=== PATIENT | female | born 1980 | race Caucasian/White ===

== ENCOUNTER 2016-12-25 03:21 | Inpatient (IN) | payer OTHER ==
[~2016-12-25] VITALS: Ht 149.9 cm; Wt 79.2 kg
[~2016-12-25 03:21] MED LIST: [UNRECOGNIZED DRUG - REMARK]
[2016-12-25 04:24] VITALS: Ht 149.9 cm; Wt 79.2 kg
[2016-12-25] MEDS ORDERED: ONDANSETRON 4 MG INJ IV PRN (04:30)
[2016-12-25] MEDS ORDERED: morphine 4 MG/ML VIAL IV PRN (04:30)
[2016-12-25] MEDS: DEXTROSE 5%-0.45% NACL 1,000 ML IV SCH ×3 (04:46→20:30)
[2016-12-25 05:15] VITALS: BP 152/73; PULSE 54; RESP 18
[2016-12-25 05:35] LABS: ADD SCAN DIFF NO
[2016-12-25 05:39] LABS: BASOPHILS % 0.2 % (0.0-2.0); EOSINOPHILS # 0.1 10^3/ul (0.0-0.5); EOSINOPHILS % 0.4 % (0.0-7.0); HEMATOCRIT 36.7 % (37.0-47.0); HEMOGLOBIN 12.4 g/dl (12.0-16.0); LYMPHOCYTES # 2.2 10^3/ul (0.8-2.9); MEAN CORPUSCULAR HEMOGLOBIN 27.3 pg (29.0-33.0); MEAN CORPUSCULAR HGB CONC 33.8 g/dl (32.0-37.0); MEAN CORPUSCULAR VOLUME 80.8 fl (82.0-101.0); MONOCYTE # 0.7 10^3/ul (0.3-0.9); MONOCYTES % 5.8 % (0.0-11.0); NEUTROPHIL # 9.6 10^3/ul (1.6-7.5); PLATELET COUNT 501 10^3/UL (140-415); RED BLOOD COUNT 4.54 10^6/ul (4.20-5.40); RED CELL DISTRIBUTION WIDTH 12.9 % (11.5-14.5); WHITE BLOOD COUNT 12.7 10^3/ul (4.8-10.8)
[2016-12-25 06:18] LABS: ALBUMIN 3.7 g/dl (3.3-4.9); ALBUMIN/GLOBULIN RATIO 1.08; BILIRUBIN,INDIRECT 0.3 mg/dl (0-1.1); BILIRUBIN,TOTAL 0.3 mg/dl (0.2-1.3); CALCIUM 8.7 mg/dl (8.4-10.2); CREATININE 0.71 mg/dl (0.44-1.00); MAGNESIUM 1.9 mg/dl (1.7-2.5); POTASSIUM 4.1 mmol/L (3.5-5.1); TOTAL PROTEIN 7.1 g/dl (6.1-8.1)
[2016-12-25 07:00] VITALS: BP 129/74; RESP 20
--- NOTE | 2016-12-25 08:53 | RADRPT ---
PROCEDURE: US Abdomen (right upper quadrant). CLINICAL INDICATION: Abdominal pain. TECHNIQUE: Multiple real-time longitudinal and transverse images of the right upper quadrant of th e abdomen were acquired utilizing a curved array transducer. Images were reviewed on a high-resoluti on PACS workstation. COMPARISON: None FINDINGS: The liver is normal in size and echotexture without focal mass or intrahepatic biliary dilatation. There is normal hepatopedal flow within the main portal vein. The gallbladder is remarkable for mul tiple echogenic, shadowing calculi. There is no wall thickening. There is a small amount of perich olecystic fluid present The common bile duct measures 6.9 mm in maximal dimension. The visualized portions of the pancreas are unremarkable with obscuration of the tail of the pancreas. No free flu id is identified. The right kidney measures 11.2 cm in length. There is normal echogenicity within the right kidney. There is no perinephric fluid collection. No hydronephrosis, mass, or calculus is seen. IMPRESSION: 1. Cholelithiasis with a small amount of pericholecystic fluid with borderline dilation of the comm on bile duct. The possibility of associated acute cholecystitis should be entertained. RPTAT: AACC Physician Santiago Date Time Electronically viewed and signed by Physician Santiago on 12/25/2016 08:53 /
--- NOTE | 2016-12-25 10:11 | HP ---
DATE OF ADMISSION: 12/25/2016 CHIEF COMPLAINT: Abdominal pain. HISTORY OF PRESENT ILLNESS: The patient is a 36-year-old female with no significant past medical hi story who was transferred from another hospital for evaluation of abdominal pain and cholecystitis. She said she has been having abdominal pain for like a day or 2 and that it is almost entirely loca lized in the right upper quadrant area. She reports associate nausea but no vomiting. She denied a [place] fever, chills, chest pain, shortness of breath, or urinary symptoms. When she was at [facility], a right upper quadrant ultrasound was done which showed g allstone with gallbladder wall thickening and a positive Ahuja sign. Her white count was 17,000. Liver chemistries were within normal limits. The patient was transferred here because of insurance reason with the diagnosis of cholecystitis. REVIEW OF SYSTEMS: A 12-point review of systems is performed and negative except as mentioned in HP I. PAST MEDICAL HISTORY: As per HPI. PAST SURGICAL HISTORY: Denies. SOCIAL HISTORY: Denied a history of tobacco, alcohol, or illicit drug use. ALLERGIES: NO KNOWNDRUG ALLERGIES. MEDICATIONS: None. PHYSICAL EXAMINATION: VITAL SIGNS: Blood pressure 152/73, heart rate 54, respiratory rate 18, temperature 98.1, oxygen sa turation 99% on room air. GENERAL: The patient is lying on her side in no acute distress. She is answering questions appropr iately. HEENT: No obvious head deformity. Pupils are reactive to light. Extraocular movements intact. CARDIOVASCULAR: Bradycardic with regular rhythm. LUNGS: Clear. ABDOMEN: Soft. There is tenderness in the right upper quadrant area with very minimal guarding to deep palpation. No rigidity, no rebound tenderness. There are positive bowel sounds. EXTREMITIES: No edema. NEUROLOGIC: No focal deficits. LABORATORY: WBC 12.7. Otherwise, CBC and CMP are within acceptable range. IMPRESSION: 1. Acute cholecystitis. 2. Right upper quadrant abdominal pain secondary to above. 3. Leukocytosis, probably secondary to acute cholecystitis. PLAN: We will keep n.p.o. with IV fluids. We will provide pain medication and antiemetics as neede d. We will place a surgical consult. I will go ahead and order right upper quadrant ultrasound. A dditional imaging as needed. Further workup and management per clinical course. Dictated By: JADIEL HONG/SPENSER Conf#: [id number] [facility]#: [id number]
[2016-12-25] MEDS ORDERED: ACETAMINOPHEN 325 MG TAB PO PRN (13:00)
[2016-12-25 13:13] LABS: CHOL/HDL RATIO 4.4 RATIO
[2016-12-25] MEDS: PIPER-TAZO 3.375 GM IV (PMX) 100 ML IVPB SCH ×3 (13:15→23:13)
[2016-12-25] MEDS: PANTOPRAZOLE 40 MG INJ IV SCH (13:16)
--- NOTE | 2016-12-25 14:38 | CONS ---
DATE OF ADMISSION: 12/25/2016 DATE OF CONSULTATION: 12/25/2016 SURGICAL CONSULTATION REFERRING PHYSICIAN: Dr. Geraldo Acosta CHIEF COMPLAINT: 1. Abdominal pain. 2. Cholecystitis. 3. Leukocytosis. HISTORY OF PRESENT ILLNESS: Monica Madsen is a 36-year-old female who has had previous issues with her gallbladder in the past year, but then presented to [facility] with abdominal pa in and associated nausea, vomiting for about 3 or 4 days, but no fevers, chills, with no chest pain, no shortness of breath, no visual or neurologic changes. No dysuria or change in bowel habits. No cough. Pain does not radiate. At [facility], ultrasound shows gallbladder wall thickening with gallstones with positive Ahuja's s ign, white count of 17,000. Her current white count is 12,000. The patient was transferred here fo further care and treatment. Her pain has improved. PAST MEDICAL HISTORY: 1. Gallstones. 2. Cholecystitis. 3. BMI of 35. 4. Leukocytosis. PAST SURGICAL HISTORY: Vaginal . SOCIAL HISTORY: Denies alcohol, drugs, or tobacco. FAMILY HISTORY: Noncontributory. REVIEW OF SYSTEMS: A 12-point review of systems negative unless mentioned in history of present ill ness. PHYSICAL EXAMINATION: VITAL SIGNS: Temperature is 98.7, pulse 50s, blood pressure 129/74, saturating 97% on room air. GENERAL: No acute distress, obese. HEENT: Pupils equal, reactive. No scleral icterus. Mucous membranes are moist. NECK: Supple, no JVD. PULMONARY: Normal respiratory effort. CARDIAC: S1, S2 present. ABDOMEN: Soft, tender in the right upper quadrant with Ahuja's. No hernias. EXTREMITIES: No edema. VASCULAR: Cap refill less than 2 seconds. NEUROLOGIC: Alert, oriented, moves all 4 extremities grossly. LYMPHATICS: No inguinal, cervical lymphadenopathy. LABORATORY AND RADIOGRAPHIC: As per chart. ASSESSMENT AND PLAN: Monica Madsen is a 36-year-old female. 1. Abdominal pain with imaging indicative of acute cholecystitis. Continue antibiotics, pain contr ol, and will consider cholecystectomy. 2. Dilated common bile duct; however, normal LFTs. MRCP pending. 3. BMI of 35. The patient is encouraged to optimize her nutrition and exercise to improve her over all health status. 4. Leukocytosis secondary to #1, as above. Thank you very much for consulting me in this patient's care. Dictated By: KIM WHITE/SPENSER Conf#: [id number] DID#: [id number]
[2016-12-25 19:54] VITALS: BP 132/75; RESP 20
[2016-12-25] MEDS: HEPARIN 5,000 UNIT/0.5 ML VIAL SC SCH (20:31)
[2016-12-26] MEDS: DEXTROSE 5%-0.45% NACL 1,000 ML IV SCH ×3 (02:08→20:57)
[2016-12-26] MEDS: PANTOPRAZOLE 40 MG INJ IV SCH (05:04)
[2016-12-26] MEDS: PIPER-TAZO 3.375 GM IV (PMX) 100 ML IVPB SCH ×4 (05:04→23:16)
[2016-12-26 05:24] LABS: ADD SCAN DIFF NO
[2016-12-26 05:30] LABS: BASOPHILS % 0.4 % (0.0-2.0); EOSINOPHILS # 0.2 10^3/ul (0.0-0.5); HEMATOCRIT 37.5 % (37.0-47.0); HEMOGLOBIN 12.2 g/dl (12.0-16.0); LYMPHOCYTES # 2.1 10^3/ul (0.8-2.9); MEAN CORPUSCULAR HEMOGLOBIN 26.6 pg (29.0-33.0); MEAN CORPUSCULAR HGB CONC 32.5 g/dl (32.0-37.0); MEAN CORPUSCULAR VOLUME 81.7 fl (82.0-101.0); MEAN PLATELET VOLUME 8.8 fl (7.4-10.4); MONOCYTE # 0.6 10^3/ul (0.3-0.9); MONOCYTES % 7.1 % (0.0-11.0); NEUTROPHIL # 4.9 10^3/ul (1.6-7.5); NEUTROPHILS % 61.9 % (39.0-77.0); PLATELET COUNT 466 10^3/UL (140-415); RED BLOOD COUNT 4.59 10^6/ul (4.20-5.40); WHITE BLOOD COUNT 7.9 10^3/ul (4.8-10.8)
[2016-12-26 05:48] LABS: CREATININE 0.88 mg/dl (0.44-1.00); POTASSIUM 3.5 mmol/L (3.5-5.1)
[2016-12-26 08:01] VITALS: BP 119/61; RESP 17
[2016-12-26 08:09] VITALS: BP 98/56; RESP 17
[2016-12-26] MEDS: HEPARIN 5,000 UNIT/0.5 ML VIAL SC SCH ×2 (09:00→20:59)
--- NOTE | 2016-12-26 10:58 | RADRPT ---
PROCEDURE: MRCP of the abdomen. CLINICAL INDICATION: Cholelithiasis with pericholecystic fluid and borderline dilatation of the co mmon bile duct. Acute cholecystitis. TECHNIQUE: AP abdomen x-ray. COMPARISON: Abdominal sonogram 12/25/2016. FINDINGS: Multiplanar multi echo imaging is performed to the abdomen without contrast. The extrahepatic commo n bile duct is identified and measures about 4.3 mm in diameter. No obstructing stone is identified in the common bile duct. There are multiple gallstones in the gallbladder. Pericholecystic fluid is identified. The right kidney is unremarkable. There is a 1.7 cm benign cyst in the lower pole of the left kidne y. There is no evidence of hydronephrosis. The spleen is unremarkable. The stomach and small curtis l loops are unremarkable. The visible portions of the colon are normal. The heart and visible lung gutierrez are unremarkable. The adrenal glands and pancreas are unremarkable. IMPRESSION: 1. Cholelithiasis. 2. Pericholecystic fluid which is likely the result of acute cholecystitis. 3. Normal common bile duct. 4. 1.7 cm benign cyst lower pole left kidney. 5. Normal extrahepatic common bile duct. No evidence of a choledocholith. Physician Alexey Date Time Electronically viewed and signed by Physician Alexey on 12/26/2016 10:57 JM/
--- NOTE | 2016-12-26 12:40 | PN ---
DATE: 12/26/2016 SUBJECTIVE: The patient had MRCP, denies any abdominal pain presently. No acute events overnight. OBJECTIVE VITAL SIGNS: Stable except heart rate is in the 51 to 78 range. ____. GENERAL: The patient is lying in bed, no acute distress. HEENT: Pupils equal, round, reactive to light. Extraocular muscles intact. NECK: Supple, no thyromegaly. LUNGS: Clear to auscultation bilaterally. CARDIOVASCULAR: S1, S2 heard. No rubs or gallops. ABDOMEN: Mild tenderness to palpation in epigastric area. No rebound or guarding. Normal bowel so unds. MUSCULOSKELETAL: No lower extremity edema bilaterally. NEUROLOGIC: No focal deficits. LABORATORY DATA: Basic metabolic panel is normal. CBC is normal. MRCP showed cholelithiasis, [place] cholecystic fluid, which is likely result of acute cholecystitis, normal common bile duct and 1.7 cm benign cyst in lower pole of the left kidney, normal extrahepatic common bile duct. No evidence of any choledocholithiasis. ASSESSMENT AND PLAN: A 36-year-old female with abdominal pain secondary to acute cholecystitis. 1. Abdominal pain secondary to acute cholecystitis, Continue the patient n.p.o., IV fluids, pain c ontrol medications and antiemetics. Followup with surgery recommendations. The patient may benefit from surgical procedure. Will discuss with them. Continue antibiotics for now. 2. Leukocytosis, likely secondary to cholecystitis, resolving now. Continue to monitor for now. 3. Gastrointestinal prophylaxis, proton pump inhibitor. 4. Deep vein thrombosis prophylaxis, ____. Dictated By: LYDIA ROB Conf#: [id number] DID#: [id number]
--- NOTE | 2016-12-26 14:55 | PN ---
Date/Time of Note Date/Time of Note DATE: 12/26/16 TIME: 14:52 Assessment/Plan Lines/Catheters IV Catheter Type (from [facility]): Peripheral IV Assessment/Plan Chief Complaint/Hosp Course 1. Abdominal pain with imaging indicative of acute cholecystitis. Improving. MRCP noted. -antibiotics -liquid diet and advance to low fat/cholesterol diet -outpt cholecystectomy. 2. Dilated common bile duct; however, normal LFTs. MRCP negative. 3. BMI of 35. The patient is encouraged to optimize her nutrition and exercise to improve her overall health status. 4. Leukocytosis secondary to #1, as above. Resolved. Thank you Problems: Subjective 24 Hr Interval Summary Leukocytosis resolved. Pain improved (09/11). No f/c. No n/v. No cp/sob. No yusuf/dizzy/visual or neuro changes. No dysuria. MRCP noted. Exam/Review of Systems Vital Signs Vitals Vital Signs Date Time Temp Pulse Resp B/P Pulse Ox O2 Delivery O2 Flow Rate FiO2 12/26/16 08:09 97.7 51 17 98/56 99 12/25/16 05:15 Room Air Intake and Output 12/25/16 12/25/16 12/26/16 15:00 23:00 07:00 Intake Total 1000 ml 100 ml 2475 ml Output Total 750 ml Balance 1000 ml 100 ml 1725 ml Exam Free Text/Dictation GENERAL: No acute distress, obese. HEENT: Pupils equal, reactive. No scleral icterus. Mucous membranes are moist. NECK: Supple, no JVD. PULMONARY: Normal respiratory effort. CARDIAC: S1, S2 present. ABDOMEN: Soft, negative Ahuja's. Very minimal tenderness to deep palpation. No rebound/guarding/rigidity. No hernias. EXTREMITIES: No edema. VASCULAR: Cap refill less than 2 seconds. NEUROLOGIC: Alert, oriented, moves all 4 extremities grossly. LYMPHATICS: No inguinal, cervical lymphadenopathy. Results Free Text/Dictation MRCP: 1. Cholelithiasis. 2. Pericholecystic fluid which is likely the result of acute cholecystitis. 3. Normal common bile duct. 4. 1.7 cm benign cyst lower pole left kidney. 5. Normal extrahepatic common bile duct. No evidence of a choledocholith. Result Diagram: 12/26/16 0450 12/26/16 0450 KIM FIERRO MD December 26, 2016 14:55
[2016-12-26 19:56] VITALS: BP 108/73; RESP 19
[2016-12-27] MEDS: PANTOPRAZOLE 40 MG INJ IV SCH (05:19)
[2016-12-27] MEDS: DEXTROSE 5%-0.45% NACL 1,000 ML IV SCH (05:19)
[2016-12-27] MEDS: PIPER-TAZO 3.375 GM IV (PMX) 100 ML IVPB SCH ×2 (05:19→12:55)
[2016-12-27 05:39] LABS: ADD SCAN DIFF NO
[2016-12-27 05:53] LABS: BASOPHILS % 0.4 % (0.0-2.0); EOSINOPHILS # 0.3 10^3/ul (0.0-0.5); EOSINOPHILS % 4.7 % (0.0-7.0); HEMOGLOBIN 11.7 g/dl (12.0-16.0); LYMPHOCYTES # 2.1 10^3/ul (0.8-2.9); LYMPHOCYTES % 31.3 % (15.0-51.0); MEAN CORPUSCULAR HEMOGLOBIN 26.4 pg (29.0-33.0); MEAN CORPUSCULAR HGB CONC 32.5 g/dl (32.0-37.0); MEAN CORPUSCULAR VOLUME 81.3 fl (82.0-101.0); MEAN PLATELET VOLUME 9.4 fl (7.4-10.4); MONOCYTE # 0.4 10^3/ul (0.3-0.9); MONOCYTES % 6.5 % (0.0-11.0); NEUTROPHIL # 3.8 10^3/ul (1.6-7.5); NEUTROPHILS % 56.4 % (39.0-77.0); PLATELET COUNT 421 10^3/UL (140-415); RED BLOOD COUNT 4.43 10^6/ul (4.20-5.40); RED CELL DISTRIBUTION WIDTH 13.1 % (11.5-14.5); WHITE BLOOD COUNT 6.8 10^3/ul (4.8-10.8)
[2016-12-27 06:08] LABS: POTASSIUM 3.3 mmol/L (3.5-5.1)
[2016-12-27 06:11] LABS: CREATININE 0.84 mg/dl (0.44-1.00)
[2016-12-27 06:12] LABS: CALCIUM 8.9 mg/dl (8.4-10.2)
[2016-12-27 08:04] VITALS: BP 110/67; RESP 16
[2016-12-27] MEDS: HEPARIN 5,000 UNIT/0.5 ML VIAL SC SCH (10:34)
[2016-12-27] MEDS ORDERED: HYDR-906 PO (11:20)
--- NOTE | 2016-12-27 11:20 | PDOCDIS ---
Discharge Instructions CONDITION Patient Condition: Stable HOME CARE INSTRUCTIONS: Diet Instructions: Regular ACTIVITY: Activity Restrictions: Slowly Increase Activity FOLLOW UP/APPOINTMENTS Appointments Please take your medications as prescribed. See your doctor in the clinic in 1 week. LYDIA CASTRO December 27, 2016 11:20
[2016-12-27] MEDS ORDERED: POTASSIUM CHLORIDE (SR) 20 MEQ TAB PO SCH (11:30)
--- NOTE | 2016-12-27 11:42 | DS ---
DATE OF ADMISSION: 12/25/2016 DATE OF DISCHARGE: 12/27/2016 A 36-year-old female originally admitted on 12/25/2016 and being discharged home on 12/27/2016 if sh e is able to tolerate soft diet. HOSPITAL COURSE: This is a 36-year-old female who came in, she had abdominal pain. She had imaging studies performed that showed signs of cholelithiasis with small amount of pericholecystic fluid wi th borderline dilation of common bile duct. There was a possibility of acute cholecystitis. The silver waller was admitted to med/surg floor, seen by general surgery team. She underwent MRCP that did con firm cholelithiasis and some pericholecystic fluid, which is likely the result of acute cholecystiti s, but there was a normal common bile duct, 1.7 cm benign cyst in the lower pole of left kidney, nor mal extrahepatic common bile duct. No evidence of any choledocholithiasis. The patient was admitte d. She was made n.p.o. and then started on IV fluids, given pain control medications. After seen b y general surgery team, it was recommended for medical treatment of the patient, she was placed on c lear liquid diet, which she tolerated, and if she tolerates a soft diet today, she will be discharge d home today in improved condition. If she tolerates that, she will follow up with the surgeon in t clinic in the next 1 week, and she will go home with [place] 5/325 one tab p.o. q.6 hours p.r.n. FINAL DIAGNOSIS: Abdominal pain secondary to cholelithiasis and mild acute cholecystitis with evelyn l lab count, negative magnetic resonance cholangiopancreatography. Time spent discharging patient, 35 minutes. Dictated By: LYDIA ROB Conf#: [id number] DID#: [id number]
--- NOTE | 2016-12-27 21:01 | PN ---
Date/Time of Note Date/Time of Note DATE: 12/27/16 TIME: 21:00 Assessment/Plan Lines/Catheters IV C[facility]ter Type (from [facility]): [place] Assessment/Plan Chief Complaint/Hosp Course 1. Abdominal pain with imaging indicative of acute cholecystitis. Improving. MRCP noted. -antibiotics -advance to low fat/cholesterol diet -outpt cholecystectomy. 2. Dilated common bile duct; however, normal LFTs. MRCP negative. 3. BMI of 35. The patient is encouraged to optimize her nutrition and exercise to improve her overall health status. 4. Leukocytosis secondary to #1, as above. Resolved. Thank you Late entry Problems: Subjective 24 Hr Interval Summary Leukocytosis resolved. Pain improved. Tolerating diet. No f/c. No n/v. No cp/sob. No yusuf/dizzy/visual or neuro changes. No dysuria. MRCP noted. Exam/Review of Systems Vital Signs Vitals Vital Signs Date Time Temp Pulse Resp B/P Pulse Ox O2 Delivery O2 Flow Rate FiO2 12/27/16 08:04 98.0 50 16 110/67 100 12/25/16 05:15 Room Air Intake and Output 12/26/16 12/26/16 12/27/16 15:00 23:00 07:00 Intake Total 1100 ml 2300 ml 2575 ml Output Total 1050 ml Balance 1100 ml 2300 ml 1525 ml Exam Free Text/Dictation GENERAL: No acute distress, obese. HEENT: Pupils equal, reactive. No scleral icterus. Mucous membranes are moist. NECK: Supple, no JVD. PULMONARY: Normal respiratory effort. CARDIAC: S1, S2 present. ABDOMEN: Soft, negative Ahuja's. NT. No rebound/guarding/rigidity. No hernias. EXTREMITIES: No edema. VASCULAR: Cap refill less than 2 seconds. NEUROLOGIC: Alert, oriented, moves all 4 extremities grossly. LYMPHATICS: No inguinal, cervical lymphadenopathy. Results Result Diagram: 12/27/16 0425 12/27/16 0425 KIM FIERRO MD December 27, 2016 21:01
[2016-12-28] MEDS ORDERED: PANTOPRAZOLE (EC) 40 MG TAB PO SCH (06:00)
== END 2016-12-27 15:54 | disposition home or self-care (01) | DRG 446 ==
LOC: MS1 03:47
PROVIDERS: ADMIT Internal Medicine; ATTEND Internal Medicine
DX: K81.0 Acute cholecystitis (principal); N28.1 Cyst of kidney, acquired; K83.8 Other specified diseases of biliary tract; K82.8 Other specified diseases of gallbladder
CPT/HCPCS: 74181; 76705; 80048; 80053; 80061; 83735; 84100; 85025; C9113; J1644; J2543; J7042

== ENCOUNTER 2017-07-23 01:13 | Emergency (ER) | payer OTHER ==
[~2017-07-23] VITALS: Ht 162.6 cm; Wt 73.0 kg
[~2017-07-23 01:13] MED LIST changes: +HYDR-906 PO; -[UNRECOGNIZED DRUG - REMARK]
[2017-07-23 01:14] VITALS: Ht 162.6 cm; Wt 73.0 kg
[2017-07-23 05:40] LABS: BASOPHILS % 0.4 % (0.0-2.0); EOSINOPHILS % 0.3 % (0.0-7.0); HEMATOCRIT 38.6 % (37.0-47.0); HEMOGLOBIN 13.2 g/dl (12.0-16.0); LYMPHOCYTES # 1.3 10^3/ul (0.8-2.9); LYMPHOCYTES % 14.1 % (15.0-51.0); MEAN CORPUSCULAR HEMOGLOBIN 27.2 pg (29.0-33.0); MEAN CORPUSCULAR HGB CONC 34.2 g/dl (32.0-37.0); MEAN CORPUSCULAR VOLUME 79.4 fl (82.0-101.0); MEAN PLATELET VOLUME 9.2 fl (7.4-10.4); MONOCYTE # 0.5 10^3/ul (0.3-0.9); NEUTROPHIL # 7.2 10^3/ul (1.6-7.5); PLATELET COUNT 344 10^3/UL (140-415); RED BLOOD COUNT 4.86 10^6/ul (4.20-5.40)
[2017-07-23 05:49] LABS: URINE BLOOD (Dip) POC 2+ (NEGATIVE)
[2017-07-23] MEDS ORDERED: ACET-141 PO (05:59)
[2017-07-23 06:24] LABS: ALBUMIN 4.4 g/dl (3.3-4.9); ALBUMIN/GLOBULIN RATIO 1.18; BILIRUBIN,INDIRECT 0.5 mg/dl (0-1.1); BILIRUBIN,TOTAL 0.5 mg/dl (0.2-1.3); CALCIUM 9.4 mg/dl (8.4-10.2); CREATININE 0.79 mg/dl (0.44-1.00); POTASSIUM 4.2 mmol/L (3.5-5.1); TOTAL PROTEIN 8.1 g/dl (6.1-8.1)
[2017-07-23] MEDS ORDERED: ONDANSETRON 4 MG INJ IV STA (06:29)
[2017-07-23] MEDS ORDERED: morphine 4 MG/ML VIAL IV STA (06:29)
[2017-07-23] MEDS ORDERED: SOD CHLORIDE 0.9% 1,000 ML IV STA (06:29)
--- NOTE | 2017-07-23 07:12 | RADRPT ---
PROCEDURE: Abdominal ultrasound, limited. CLINICAL INDICATION: Abdominal pain. TECHNIQUE: Multiple real-time images were acquired of the patient's right upper abdomen utilizing a high resolution transducer. COMPARISON: 12/25/2016. FINDINGS: The liver demonstrates normal echogenicity and size measuring 14.3 cm. There is no focal mass or in trahepatic biliary ductal dilatation. The portal vein is patent. The gallbladder is not distended. Multiple echogenic gallstones are identified. There is no pericholecystic fluid or gallbladder wa ll thickening. The common bile duct measures 5.0 mm in maximal dimension. The visualized portions of the pancreas are unremarkable. No free fluid is identified. The right kidney is normal size and echogenicity measuring 9.8 x 3.8 cm. There is no focal renal ma ss or echogenic calculus identified. There is no obstructive uropathy. IMPRESSION: Cholelithiasis without ultrasound evidence of cholecystitis. .Cecil Parker MD, MD Date Time Electronically viewed and signed by .Cecil Parker MD, MD on 07/23/2017 07:12 .T/
[2017-07-23] MEDS ORDERED: HYDR-902 PO (07:26)
[2017-07-23] MEDS ORDERED: ONDA4TAB14 PO (07:26)
--- NOTE | 2017-07-23 07:49 | ERD ---
ER Documentation Chief Complaint Chief Complaint RUQ abf pain x 2 days HPI Patient is a 37-year-old female who presents with abdominal pain. She has right upper quadrant abdominal pain which started yesterday at 6 PM. The pain is been constant and sharp in nature. She has no fevers. She did have vomiting. She tried Tylenol for pain. She was admitted in November for cholecystitis but did not have her gallbladder removed on that visit. She does not currently have a primary doctor. ROS All systems reviewed and are negative except as per history of present illness. Medications Home Meds Active Scripts Ondansetron (Ondansetron Odt) 4 Mg Tab.rapdis, 4 MG PO Q6H Y for NAUSEA AND/OR VOMITING, #10 TAB Prov:AMEYA BAI MD 07/23/17 Hydrocodone/Acetaminophen ([place] 10-325 Tablet) 1 Each Tablet, 1 TAB PO Q6H Y for PAIN, #7 TAB Prov:AMEYA BAI MD 07/23/17 Reported Medications Acetaminophen* (Acetaminophen*) 500 MG Extra Strength Tablet, 500 MG PO Q4H Y for PAIN AND OR ELEVATED TEMP, TAB 07/23/17 Discontinued Scripts Hydrocodone/Acetaminophen ([place] 5-325 Tablet) 1 Each Tablet, 1 EACH PO Q6, #10 TAB Prov:LYDIA CASTRO 12/27/16 Allergies Allergies: Uncoded Allergies: UNKNOWN ANTIBIOTICS (Allergy, Unknown, 03/23/14) PMhx/Soc Medical and Surgical Hx: pt denies Medical Hx, pt denies Surgical Hx History of Surgery: No Anesthesia Reaction: No Hx Neurological Disorder: No Hx Respiratory Disorders: No Hx Cardiac Disorders: No Hx Psychiatric Problems: No Hx Miscellaneous Medical Probl: No Hx Alcohol Use: No Hx Substance Use: No Hx Tobacco Use: No Smoking Status: Never smoker FmHx Family History: diabetes Physical Exam Vitals Vital Signs Date Time Temp Pulse Resp B/P Pulse Ox O2 Delivery O2 Flow Rate FiO2 07/23/17 05:55 97.6 56 17 133/79 98 Room Air 07/23/17 01:14 98.3 67 20 131/82 100 Physical Exam Const: Moderate distress secondary to pain Head: Atraumatic Eyes: Normal Conjunctiva ENT: Normal External Ears, Nose and Mouth. Neck: Full range of motion..~ No meningismus. Resp: Clear to auscultation bilaterally Cardio: Regular rate and rhythm, no murmurs Abd: Soft, right upper quadrant tenderness to palpation without rebound or guarding Skin: No petechiae or rashes Back: No midline or flank tenderness Ext: No cyanosis, or edema Neur: Awake and alert Psych: Normal Mood and Affect Result Diagram: 07/23/17 0532 07/23/17 0532 Results 24 hrs Laboratory Tests Test 07/23/17 05:32 07/23/17 05:50 White Blood Count 9.010^3/ul Red Blood Count 4.8610^6/ul Hemoglobin 13.2g/dl Hematocrit 38.6% Mean Corpuscular Volume 79.4fl Mean Corpuscular Hemoglobin 27.2pg Mean Corpuscular Hemoglobin Concent 34.2g/dl Red Cell Distribution Width 13.0% Platelet Count 79118^3/UL Mean Platelet Volume 9.2fl Neutrophils % 80.0% Lymphocytes % 14.1% Monocytes % 5.0% Eosinophils % 0.3% Basophils % 0.4% Nucleated Red Blood Cells % 0.0/100WBC Neutrophils # 7.210^3/ul Lymphocytes # 1.310^3/ul Monocytes # 0.510^3/ul Eosinophils # 0.010^3/ul Basophils # 0.010^3/ul Nucleated Red Blood Cells # 0.010^3/ul Sodium Level 138mmol/L Potassium Level 4.2mmol/L Chloride Level 102mmol/L Carbon Dioxide Level 24mmol/L Anion Gap 16 Blood Urea Nitrogen 16mg/dl Creatinine 0.79mg/dl Glucose Level 137mg/dl Calcium Level 9.4mg/dl Total Bilirubin 0.5mg/dl Direct Bilirubin 0.00mg/dl Indirect Bilirubin 0.5mg/dl Aspartate Amino Transf (AST/SGOT) 24IU/L Alanine Aminotransferase (ALT/SGPT) 34IU/L Alkaline Phosphatase 63IU/L Total Protein 8.1g/dl Albumin 4.4g/dl Globulin 3.70g/dl Albumin/Globulin Ratio 1.18 Lipase 74U/L Bedside Urine pH (LAB) 5.5 Bedside Urine Protein (LAB) Negative Bedside Urine Glucose (UA) Negative Bedside Urine Ketones (LAB) Negative Bedside Urine Blood 2+ Bedside Urine Nitrite (LAB) Negative Bedside Urine Leukocyte Esterase (L Negative Current Medications Medications (Trade) Dose Ordered Sig/Beth Route PRN Reason Start Time Stop Time Status Last Admin Dose Admin Sodium Chloride (NS) 1,000 ml @ 1,000 mls/hr Q1H STAT IV 07/23/17 06:29 07/23/17 07:28 DC Morphine Sulfate (morphine) 4 mg ONCE STAT IV 07/23/17 06:29 07/23/17 06:30 DC Ondansetron HCl (Zofran Inj) 4 mg ONCE STAT IV 07/23/17 06:29 07/23/17 06:30 DC Procedures/MDM Ultrasound shows gallstones without cholecystitis per radiology. Patient is a 37-year-old female who presents with right upper quadrant abdominal pain. I believe she has acute biliary colic. Her white blood cell count and liver tests as well as lipase are normal. Ultrasound shows gallstones but no signs of cholecystitis at this time. I believe outpatient management is appropriate but the patient would likely benefit from elective cholecystectomy. She saw Dr. Christian back in November so I will give her referral to Dr. Christian from surgery. She can return for any worsening symptoms. The patient understands the plan and is okay for discharge at this time. A [place]ian video rounding machine tender was used. The patient was given a copy of her laboratory studies and ultrasound report prior to discharge. Departure Diagnosis: Primary Impression: Biliary colic Additional Impression: Abdominal pain Abdominal location: right upper quadrant Qualified Code: R10.11 - Right upper quadrant abdominal pain Condition: Fair Patient Instructions: Biliary Colic With Gallstone (Presumed) Referrals: KIM CHRISTIAN MD Additional Instructions: Specialist:Usted tiene rj condicin mdica que requiere que mark a un especialista dentro de los prximos 1-2 [place].POR FAVOR,CON MONTIEL SEGUIMIENTO DE PRIMARIA PHSICIAN refferal. SI USTED NO TIENE UN MDICO GENERAL Y / O USTED NO PUEDE PAGAR saritha a un mdico,los siguientes espinosa RECURSOS sido suministrado a usted. ES MONTIEL RESPONSABILIDAD PARA SER VISTOS POR EL ESPECIALISTA: AMEYA BAI MD Jul 23, 2017 07:49
[2017-07-23 08:54] VITALS: BP 121/76; PULSE 52; RESP 26; TEMP 98.1
== END 2017-07-23 08:40 | disposition home or self-care (01) ==
LOC: E/R 01:13
DX: K80.50 Calculus of bile duct without cholangitis or cholecystitis without obstruction (principal); R40.2142 Coma scale, eyes open, spontaneous, at arrival to emergency department; R40.2252 Coma scale, best verbal response, oriented, at arrival to emergency department; R40.2362 Coma scale, best motor response, obeys commands, at arrival to emergency department
CPT/HCPCS: 36415; 76705; 80053; 81003; 83690; 85025; 96361; 96374; 96375; J2270; J2405; J7030; Z7502

== ENCOUNTER 2017-07-25 13:18 | Inpatient (IN) | payer OTHER ==
[~2017-07-25] VITALS: Ht 149.9 cm; Wt 72.4 kg
[~2017-07-25 13:18] MED LIST changes: +ACET-141 PO; +HYDR-902 PO; -HYDR-906 PO; +ONDA4TAB14 PO
[2017-07-25] MEDS ORDERED: SOD CHLORIDE 0.9% 1,000 ML IV STA (13:47)
[2017-07-25] MEDS ORDERED: ONDANSETRON 4 MG INJ IV STA (13:47)
[2017-07-25] MEDS ORDERED: morphine 4 MG/ML VIAL IV STA (13:47)
--- NOTE | 2017-07-25 14:49 | RADRPT ---
PROCEDURE: US Abdomen (right upper quadrant). CLINICAL INDICATION: Right upper quadrant abdomen pain. TECHNIQUE: Multiple real-time longitudinal and transverse images of the right upper quadrant of th e abdomen were acquired utilizing a curved array transducer. Images were reviewed on a high-resoluti on PACS workstation. COMPARISON: Right upper quadrant abdomen ultrasound dated July 23, 2017 which demonstrated gal lstones in the gallbladder and no evidence of cholecystitis. FINDINGS: The liver is normal in size and normal in echogenicity. There is no focal hepatic lesion. Color Doppler and pulsed Doppler sonography demonstrate normal a ntegrade flow in the portal vein. As seen previously, there are gallstones in the gallbladder. There is a small amount of fluid adjace nt to the gallbladder. There is mild gallbladder wall thickening in measuring 4 mm. The bile ducts are normal with the common bile duct measuring 4.7 mm in diameter. The visualized portions of the pancreas are unremarkable with obscuration of the tail of the pancrea s. No free fluid is present. The right kidney measures 9.7 cm. There is normal echogenicity of the right kidney. There is no p erinephric fluid collection. No hydronephrosis, mass, or calculus is seen. IMPRESSION: 1. Gallstones in the gallbladder, mild gallbladder wall thickening and adjacent fluid. Findings are suspicious for cholecystitis. Clinical correlation advised. 2. Otherwise normal right upper quadrant abdomen ultrasound. RPTAT: QQ .Korey Luna MD, Date Time Electronically viewed and signed by .Korey Luna MD, on 07/25/2017 14:49 .R/
[2017-07-25 15:25] LABS: BASOPHILS % 0.4 % (0.0-2.0); EOSINOPHILS % 0.2 % (0.0-7.0); HEMATOCRIT 41.2 % (37.0-47.0); LYMPHOCYTES # 1.4 10^3/ul (0.8-2.9); LYMPHOCYTES % 11.9 % (15.0-51.0); MEAN CORPUSCULAR HEMOGLOBIN 26.8 pg (29.0-33.0); MEAN CORPUSCULAR VOLUME 78.9 fl (82.0-101.0); MEAN PLATELET VOLUME 9.6 fl (7.4-10.4); MONOCYTE # 0.6 10^3/ul (0.3-0.9); MONOCYTES % 4.9 % (0.0-11.0); NEUTROPHIL # 9.3 10^3/ul (1.6-7.5); NEUTROPHILS % 82.2 % (39.0-77.0); PLATELET COUNT 394 10^3/UL (140-415); RED BLOOD COUNT 5.22 10^6/ul (4.20-5.40); RED CELL DISTRIBUTION WIDTH 13.1 % (11.5-14.5); WHITE BLOOD COUNT 11.3 10^3/ul (4.8-10.8)
[2017-07-25 15:35] LABS: ADD UMIC YES; UR ASCORBIC ACID 20 mg/dL (NEGATIVE); UR BILIRUBIN (Dip) NEGATIVE (NEGATIVE); UR BLOOD (Dip) 3+ mg/dL (NEGATIVE); UR CLARITY SLIGHTLY CLOUDY (CLEAR); UR COLOR YELLOW (YELLOW); UR GLUCOSE (Dip) NEGATIVE (NEGATIVE); UR KETONES (Dip) 2+ mg/dL (NEGATIVE); UR LEUKOCYTE ESTERASE (Dip) NEGATIVE Leu/ul (NEGATIVE); UR MUCUS FEW /HPF (NONE SEEN); UR NITRITE (Dip) NEGATIVE (NEGATIVE); UR RBC 7 /HPF (0-5); UR SPECIFIC GRAVITY (Dip) 1.021 (1.003-1.030); UR SQUAMOUS EPITHELIAL CELL FEW /HPF (FEW); UR TOTAL PROTEIN (Dip) NEGATIVE (NEGATIVE); UR UROBILINOGEN (Dip) NEGATIVE (NEGATIVE)
[2017-07-25 15:44] LABS: ALBUMIN 4.5 g/dl (3.3-4.9); ALBUMIN/GLOBULIN RATIO 1.25; BILIRUBIN,INDIRECT 0.6 mg/dl (0-1.1); BILIRUBIN,TOTAL 0.6 mg/dl (0.2-1.3); CALCIUM 9.8 mg/dl (8.4-10.2); CREATININE 0.75 mg/dl (0.44-1.00); POTASSIUM 4.2 mmol/L (3.5-5.1); TOTAL PROTEIN 8.1 g/dl (6.1-8.1)
[2017-07-25] MEDS ORDERED: KETOROLAC 30 MG INJ IV STA (15:58)
--- NOTE | 2017-07-25 16:24 | ERD ---
ER Documentation Chief Complaint Chief Complaint RUQ PAIN HAS HX OF CHOLELITHIASIS BILE COLORED EMESIS (DOMINGO PRIDE PA-C) HPI Patient is a 29-year-old female with a history of cholelithiasis who presents ED for concerns of persistent right upper quadrant pain and vomiting. Patient was seen here 2 days ago and at that time diagnosed with biliary colic. Patient states she has been taking [place] as well as Zofran with no alleviation of symptoms. Patient continues to have vomiting. Patient states this morning she vomited approximately 3 times, nonbloody, bilious vomiting noted. Patient denies any fevers or chills. Patient denies any chest pain, shortness of breath or cough. Denies any dysuria, frequency, urgency or hematuria. Patient denies any diarrhea. Of note, patient was hospitalized in November of this year for cholecystitis however she did not have her gallbladder removed at that time. (DOMINGO PRIDE PA-C) ROS All systems reviewed and are negative except as per history of present illness. (DOMINGO PRIDE PA-C) Medications Home Meds Active Scripts Ondansetron (Ondansetron Odt) 4 Mg Tab.rapdis, 4 MG PO Q6H Y for NAUSEA AND/OR VOMITING, #10 TAB Prov:AMEYA BAI MD 07/23/17 Hydrocodone/Acetaminophen ([place] 10-325 Tablet) 1 Each Tablet, 1 TAB PO Q6H Y for PAIN, #7 TAB Prov:AMEYA BAI MD 07/23/17 Reported Medications Acetaminophen* (Acetaminophen*) 500 MG Extra Strength Tablet, 500 MG PO Q4H Y for PAIN AND OR ELEVATED TEMP, TAB 07/23/17 Discontinued Scripts Hydrocodone/Acetaminophen ([place] 5-325 Tablet) 1 Each Tablet, 1 EACH PO Q6, #10 TAB Prov:LYDIA CASTRO. 12/27/16 Allergies Allergies: Coded Allergies: No Known Allergies (Unverified Allergy, Unknown, 07/26/17) PMhx/Soc Medical and Surgical Hx: pt denies Medical Hx, pt denies Surgical Hx History of Surgery: No Anesthesia Reaction: No Hx Neurological Disorder: No Hx Respiratory Disorders: No Hx Cardiac Disorders: No Hx Psychiatric Problems: No Hx Miscellaneous Medical Probl: No Hx Alcohol Use: No Hx Substance Use: No Hx Tobacco Use: No Smoking Status: Never smoker (DOMINGO PRIDE PA-C) Physical Exam Vitals Vital Signs Date Time Temp Pulse Resp B/P Pulse Ox O2 Delivery O2 Flow Rate FiO2 07/25/17 16:01 98.2 89 18 132/78 99 Room Air 07/25/17 13:35 99.0 64 18 152/79 99 (BEVERLY NAQVI DO) Physical Exam GENERAL: Well-developed, well-nourished female. Appears in pain. HEAD: Normocephalic, atraumatic. EYES: Pupils are equally reactive bilaterally. EOMs grossly intact. No conjunctival erythema. ENT: Moist mucous membranes. No uvula deviation. No kissing tonsils. NECK: Supple. No meningismus. Normal range of motion of the neck. LUNG: Clear to auscultation bilaterally. No rhonchi, wheezing, rales or coarse breath sounds. HEART: Regular rate and rhythm. No murmurs, rubs or gallops. ABDOMEN: Soft, and nondistended. Tender to palpation in the right upper quadrant. No rebound tenderness, no guarding. (-) McBurney's point tenderness. No CVA tenderness. EXTREMITIES: Equal pulses bilaterally. No peripheral clubbing, cyanosis or edema. No unilateral leg swelling. NEUROLOGIC: Alert and oriented. Moving all four extremities without any difficulty. Normal speech. Steady gait. SKIN: Normal color. Warm and dry. No rashes or lesions. (DOMINGO PRIDE PA-C) Result Diagram: 07/26/1762707/26/17 0628 Results 24 hrs Laboratory Tests Test 07/25/17 14:24 07/25/17 14:36 Urine Color YELLOW Urine Clarity SLIGHTLY CLOUDY Urine pH 6.0 Urine Specific [place] 1.021 Urine Ketones 2+mg/dL Urine Nitrite NEGATIVEmg/dL Urine Bilirubin NEGATIVEmg/dL Urine Urobilinogen NEGATIVEmg/dL Urine Leukocyte Esterase NEGATIVELeu/ul Urine Microscopic RBC 7/HPF Urine Microscopic WBC 7/HPF Urine Squamous Epithelial Cells FEW/HPF Urine Mucus FEW/HPF Urine Hemoglobin 3+mg/dL Urine Glucose NEGATIVEmg/dL Urine Total Protein NEGATIVEmg/dl White Blood Count 11.310^3/ul Red Blood Count 5.2210^6/ul Hemoglobin 14.0g/dl Hematocrit 41.2% Mean Corpuscular Volume 78.9fl Mean Corpuscular Hemoglobin 26.8pg Mean Corpuscular Hemoglobin Concent 34.0g/dl Red Cell Distribution Width 13.1% Platelet Count 34060^3/UL Mean Platelet Volume 9.6fl Neutrophils % 82.2% Lymphocytes % 11.9% Monocytes % 4.9% Eosinophils % 0.2% Basophils % 0.4% Nucleated Red Blood Cells % 0.0/100WBC Neutrophils # 9.310^3/ul Lymphocytes # 1.410^3/ul Monocytes # 0.610^3/ul Eosinophils # 0.010^3/ul Basophils # 0.010^3/ul Nucleated Red Blood Cells # 0.010^3/ul Sodium Level 139mmol/L Potassium Level 4.2mmol/L Chloride Level 100mmol/L Carbon Dioxide Level 26mmol/L Anion Gap 17 Blood Urea Nitrogen 9mg/dl Creatinine 0.75mg/dl Glucose Level 98mg/dl Calcium Level 9.8mg/dl Total Bilirubin 0.6mg/dl Direct Bilirubin 0.00mg/dl Indirect Bilirubin 0.6mg/dl Aspartate Amino Transf (AST/SGOT) 26IU/L Alanine Aminotransferase (ALT/SGPT) 33IU/L Alkaline Phosphatase 61IU/L Total Protein 8.1g/dl Albumin 4.5g/dl Globulin 3.60g/dl Albumin/Globulin Ratio 1.25 Lipase 74U/L Current Medications Medications (Trade) Dose Ordered Sig/Beth Route PRN Reason Start Time Stop Time Status Last Admin Dose Admin Sodium Chloride (NS) 1,000 ml @ 1,000 mls/hr Q1H STAT IV 07/25/17 13:47 07/25/17 14:46 DC 07/25/17 14:36 Morphine Sulfate (morphine) 4 mg ONCE STAT IV 07/25/17 13:47 07/25/17 13:49 DC 07/25/17 14:36 Ondansetron HCl (Zofran Inj) 4 mg ONCE STAT IV 07/25/17 13:47 07/25/17 13:49 DC 07/25/17 14:36 Ketorolac Tromethamine 30 mg 30 mg ONCE STAT IV 07/25/17 15:58 07/25/17 15:59 DC 07/25/17 16:02 Sodium Chloride 1,000 ml @ 1,000 mls/hr Q1H ONCE IV 07/25/17 16:30 07/25/17 17:29 DC 07/25/17 16:18 Ceftriaxone Sodium (Rocephin) 50 ml @ 100 mls/hr ONCE ONCE IVPB 07/25/17 16:30 07/25/17 16:59 DC 07/25/17 16:23 Metronidazole (Flagyl) 500 mg ONCE ONCE PO 07/25/17 16:30 07/25/17 16:31 DC 07/25/17 17:41 Ondansetron HCl (Zofran Inj) 4 mg BRIDGE ORDER PRN IV NAUSEA AND/OR VOMITING 07/25/17 17:30 07/26/17 17:29 DC 07/26/17 14:22 Acetaminophen (Tylenol Tab) 650 mg ER BRIDGE PRN PO MILD PAIN/FEVER 07/25/17 17:30 07/26/17 17:29 DC Fentanyl (Sublimaze) 100 mcg ONCE ONCE IV 07/25/17 17:30 07/25/17 17:31 DC 07/25/17 18:50 (BEVERLY NAQVI DO) Procedures/MDM ED COURSE: The patient was stable throughout ED course. I kept the patient and/or family informed of laboratory and diagnostic imaging results throughout the ED course. DIAGNOSTIC IMAGING: Read by radiologist. Patient: NURY OBREGON : 1980 Age: 37 Sex: F MR #: [id number] DOS: 07/25/17 1347 Ordering MD: DOMINGO PRIDE PA-C Location: [facility] Room/Bed: PROCEDURE: US Abdomen (right upper quadrant). CLINICAL INDICATION: Right upper quadrant abdomen pain. TECHNIQUE: Multiple real-time longitudinal and transverse images of the right upper quadrant of the abdomen were acquired utilizing a curved array transducer. Images were reviewed on a high-resolution PACS workstation. COMPARISON: Right upper quadrant abdomen ultrasound dated July 23, 2017 which demonstrated gallstones in the gallbladder and no evidence of cholecystitis. FINDINGS: The liver is normal in size and normal in echogenicity. There is no focal hepatic lesion. Color Doppler and pulsed Doppler sonography demonstrate normal antegrade flow in the portal vein. As seen previously, there are gallstones in the gallbladder. There is a small amount of fluid adjacent to the gallbladder. There is mild gallbladder wall thickening in measuring 4 mm. The bile ducts are normal with the common bile duct measuring 4.7 mm in diameter. The visualized portions of the pancreas are unremarkable with obscuration of the tail of the pancreas. No free fluid is present. The right kidney measures 9.7 cm. There is normal echogenicity of the right kidney. There is no perinephric fluid collection. No hydronephrosis, mass, or calculus is seen. IMPRESSION: 1. Gallstones in the gallbladder, mild gallbladder wall thickening and adjacent fluid. Findings are suspicious for cholecystitis. Clinical correlation advised. 2. Otherwise normal right upper quadrant abdomen ultrasound. RPTAT: QQ .Korey Luna MD, MD Date Time Electronically viewed and signed by .Korey Luna MD, MD on 07/25/2017 14:49 .R/ CC: DOMINGO PRIDE PA-C MEDICATIONS GIVEN: IV fluids, Zofran, Morphine, Toradol Patient tolerated medication well with no adverse reactions. Patient reported improvement in pain. MEDICAL DECISION MAKING: This is a 37-year-old female presents ED for concerns of right upper quadrant pain and vomiting. Patient was seen here 2 days ago and diagnosed with biliary colic. Patient returns today for ongoing pain and vomiting. Vital signs were reviewed. Patient is afebrile. CBC showed no signs of severe anemia. Patient' s WBC count was noted to be 11.3. CMP showed no evidence of electrolyte abnormalities, severe acidosis, alkalosis, renal failure, or liver disease. Lipase showed no evidence of acute pancreatitis. UA showed no evidence of acute infection. Blood was noted in the patient's urine however she states that she is ending her menstrual period.. test was negative. Gallbladder ultrasound today showed gallstones in the gallbladder, mild gallbladder wall thickening and adjacent fluid. Findings are suspicious for cholecystitis. Clinical correlation advised. Patient required numerous doses of pain medication and continues to have pain. At this time, patient presentation is most consistent with cholecystitis and intractable pain. I spoke to Dr. Naqvi, ED attending, who will assist with admitting the patient. Admitting MD= Dr. Jenkins. Patient was stable throughout the ED course. Low suspicion for pancreatitis, choledocholithiasis, ascending cholangitis, UTI or pyelonephritis. Disclaimer: Inadvertent spelling and grammatical errors are likely due to EHR/ dictation software use and do not reflect on the overall quality of patient care. Also, please note that the electronic time recorded on this note does not necessarily reflect the actual time of the patient encounter. (DOMINGO PRIDE PA-C) This patient with evidence of acute cholecystitis and difficult to control pain presented to me and I believe that the patient should be admitted for pain control and evaluation. I spoke with Dr. Keyes, surgeon on-call after was unable to reach Dr. Christian. Then spoke with Dr. Papi Jenkins who agreed to admit the patient. I ordered Rocephin and Flagyl for an additional IV fluid. Additional pain medicine was given. (BEVERLY NAQVI DO) Departure Diagnosis: Primary Impression: Cholecystitis Additional Impression: Intractable pain DOMINGO PRIDE PA-C Jul 25, 2017 16:24 BEVERLY NAQVI DO Jul 26, 2017 18:37 FINDINGS: The liver is normal in size and normal in echogenicity. There is no focal hepatic lesion. Color Doppler and pulsed Doppler sonography demonstrate normal antegrade flow in the portal vein. As seen previously, there are gallstones in the gallbladder. There is a small amount of fluid adjacent to the gallbladder. There is mild gallbladder wall thickening in measuring 4 mm. The bile ducts are normal with the common bile duct measuring 4.7 mm in diameter. The visualized portions of the pancreas are unremarkable with obscuration of the tail of the pancreas. No free fluid is present. The right kidney measures 9.7 cm. There is normal echogenicity of the right kidney. There is no perinephric fluid collection. No hydronephrosis, mass, or calculus is seen. IMPRESSION: 1. Gallstones in the gallbladder, mild gallbladder wall thickening and adjacent fluid. Findings are suspicious for cholecystitis. Clinical correlation advised. 2. Otherwise normal right upper quadrant abdomen ultrasound. RPTAT: QQ .Korey Luna MD, MD Date Time Electronically viewed and signed by .Korey Luna MD, MD on 07/25/2017 14:49 .R/ CC: DOMINGO PRIDE PA-C MEDICATIONS GIVEN: IV fluids, Zofran, Morphine, Toradol Patient tolerated medication well with no adverse reactions. Patient reported improvement in pain. MEDICAL DECISION MAKING: This is a 37-year-old female presents ED for concerns of right upper quadrant pain and vomiting. Patient was seen here 2 days ago and diagnosed with biliary colic. Patient returns today for ongoing pain and vomiting. Vital signs were reviewed. Patient is afebrile. CBC showed no signs of severe anemia. Patient' s WBC count was noted to be 11.3. CMP showed no evidence of electrolyte abnormalities, severe acidosis, alkalosis, renal failure, or liver disease. Lipase showed no evidence of acute pancreatitis. UA showed no evidence of acute infection. Blood was noted in the patient's urine however she states that she is ending her menstrual period.. test was negative. Gallbladder ultrasound today showed gallstones in the gallbladder, mild gallbladder wall thickening and adjacent fluid. Findings are suspicious for cholecystitis. Clinical correlation advised. Patient required numerous doses of pain medication and continues to have pain. At this time, patient presentation is most consistent with cholecystitis and intractable pain. I spoke to Dr. Naqvi, ED attending, who will assist with admitting the patient. Admitting MD= Dr. Jenkins. Patient was stable throughout the ED course. Low suspicion for pancreatitis, choledocholithiasis, ascending cholangitis, UTI or pyelonephritis. Disclaimer: Inadvertent spelling and grammatical errors are likely due to EHR/ dictation software use and do not reflect on the overall quality of patient care. Also, please note that the electronic time recorded on this note does not necessarily reflect the actual time of the patient encounter. Departure Diagnosis: Primary Impression: Cholecystitis Additional Impression: Intractable pain DOMINGO PRIDE PA-C Jul 25, 2017 16:24
[2017-07-25] MEDS ORDERED: metroNIDAZOLE 500 MG TAB PO ONE (16:30)
[2017-07-25] MEDS ORDERED: SOD CHLORIDE 0.9% 1,000 ML IV ONE (16:30)
[2017-07-25] MEDS ORDERED: CEFTRIAXONE 1 GM/50 ML (PMX) 50 ML IVPB ONE (16:30)
[2017-07-25] MEDS ORDERED: ACETAMINOPHEN 325 MG TAB PO PRN ×2 (17:30→18:00)
[2017-07-25] MEDS ORDERED: ONDANSETRON 4 MG INJ IV PRN ×2 (17:30→18:00)
[2017-07-25] MEDS ORDERED: FENTAnyl 50 MCG/ML VIAL IV ONE (17:30)
--- NOTE | 2017-07-25 17:54 | HP ---
Date/Time of Note Date/Time of Note DATE: 07/25/17 TIME: 17:50 Assessment/Plan VTE Prophylaxis VTE Prophylaxis Intervention: heparin Assessment/Plan Chief Complaint/Hosp Course Objective Physical exam General: Patient is laying in bed and answers questions appropriately Mentation: Patient is alert and oriented 4, Head: Normocephalic atraumatic Eyes: EOMI, pupils reactive to light Neck: Supple, nontender, midline Respiratory: Clear to auscultation bilaterally Cardiovascular: regular rate, no obvious murmurs Gastrointestinal:RUQ tender to palpation, bowel sounds heard. Neurological: Moves all extremities spontaneously Skin: No new skin lesions Assessment and plan Right upper quadrant abdominal pain -Likely cholecystitis, ultrasound showing evidence -General surgery has been consulted -We will order HIDA -N.p.o., IV fluids, pain control Obesity -Likely contributing to cholecystitis -Manage outpatient Disposition -Pending general surgery recommendations Problems: HPI/ROS Admit Date/Time Admit Date/Time Hx of Present Illness Patient is a 37-year-old female with a past medical history of admission for cholecystitis approximately in November 2016. Patient was seen by general surgery however conservative management was decided at this time. Patient also presented 2 days ago to [facility] ED and was diagnosed with biliary colic by the ED staff and was discharged on pain medication. Patient returned to the ED today for similar complaints of right upper quadrant pain as well as associated nausea and vomiting. Patient also states that coincidentally there is also pain in her right shoulder and in her right upper back. Patient denies shortness of breath, headache, chest pain, lower extremity pain. PMH: Previous hospitalization for cholecystitis, no surgery PSH: Denies Social: Denies Meds:none PMH/Family/Social Social History Smoking Status: Never smoker Exam/Review of Systems Vital Signs Vitals Vital Signs Date Time Temp Pulse Resp B/P Pulse Ox O2 Delivery O2 Flow Rate FiO2 07/25/17 16:01 98.2 89 18 132/78 99 Room Air Labs Result Diagram: 07/25/17 1436 07/25/17 1436 Medications Medications Current Medications Ciprofloxacin/ Dextrose 200 ml @ 200 mls/hr Q12 IVPB ; Start 07/25/17 at 21:00 ; Status UNV Metronidazole (Flagyl 500 Mg (Pmx)) 100 ml @ 100 mls/hr Q8 IVPB ; Start at 22:00; Status UNV DIANA CHANG Jul 25, 2017 17:54
[2017-07-25] MEDS ORDERED: LORAZEPAM 2 MG INJ IV PRN (18:00)
[2017-07-25] MEDS ORDERED: morphine 2 MG INJ IV PRN (18:00)
[2017-07-25] MEDS ORDERED: NACL 0.9% 3 ML SYG IV SCH (18:00)
[2017-07-25] MEDS ORDERED: MAGNESIUM HYDROXIDE 30ML CUP PO PRN (18:00)
[2017-07-25] MEDS ORDERED: HYDROCODONE/APAP (5/325) TAB PO PRN (18:00)
[2017-07-25] MEDS ORDERED: BISACODYL (EC) 5 MG TAB PO PRN (18:00)
[2017-07-25] MEDS: DEXTROSE 5%-0.45% NACL 1,000 ML IV SCH (18:52)
[2017-07-25] MEDS: CIPROFLOXACIN 400MG/D5W 200 ML IVPB SCH (20:21)
[2017-07-25 20:47] VITALS: TEMP 97.9
[2017-07-25 21:05] VITALS: BP 106/51; PULSE 54; RESP 18
[2017-07-25 21:15] VITALS: Ht 149.9 cm; Wt 72.4 kg
[2017-07-25] MEDS: HEPARIN 5,000 UNIT/0.5 ML VIAL SC SCH (21:49)
[2017-07-25] MEDS: metroNIDAZOLE 500 MG/NS (PMX) 100 ML IVPB SCH ×2 (21:49→23:31)
[2017-07-26] VITALS (10 sets, daily range): BP systolic 100–148; BP diastolic 55–83; PULSE 62–84; RESP 12–18
[2017-07-26] MEDS: DEXTROSE 5%-0.45% NACL 1,000 ML IV SCH ×4 (03:47→23:47)
[2017-07-26] MEDS: metroNIDAZOLE 500 MG/NS (PMX) 100 ML IVPB SCH ×3 (05:20→21:42)
[2017-07-26] MEDS: HEPARIN 5,000 UNIT/0.5 ML VIAL SC SCH ×3 (05:23→21:46)
[2017-07-26 07:34] LABS: BASOPHILS % 0.4 % (0.0-2.0); EOSINOPHILS # 0.1 10^3/ul (0.0-0.5); HEMATOCRIT 35.4 % (37.0-47.0); LYMPHOCYTES # 1.5 10^3/ul (0.8-2.9); LYMPHOCYTES % 21.8 % (15.0-51.0); MEAN CORPUSCULAR HEMOGLOBIN 27.4 pg (29.0-33.0); MEAN CORPUSCULAR HGB CONC 33.9 g/dl (32.0-37.0); MEAN CORPUSCULAR VOLUME 80.8 fl (82.0-101.0); MEAN PLATELET VOLUME 9.7 fl (7.4-10.4); MONOCYTE # 0.8 10^3/ul (0.3-0.9); MONOCYTES % 10.8 % (0.0-11.0); NEUTROPHIL # 4.6 10^3/ul (1.6-7.5); NEUTROPHILS % 65.7 % (39.0-77.0); PLATELET COUNT 304 10^3/UL (140-415); RED BLOOD COUNT 4.38 10^6/ul (4.20-5.40); RED CELL DISTRIBUTION WIDTH 13.2 % (11.5-14.5); WHITE BLOOD COUNT 7.1 10^3/ul (4.8-10.8)
[2017-07-26 08:03] LABS: ALBUMIN 3.8 g/dl (3.3-4.9); ALBUMIN/GLOBULIN RATIO 1.35; BILIRUBIN,INDIRECT 0.5 mg/dl (0-1.1); BILIRUBIN,TOTAL 0.5 mg/dl (0.2-1.3); CALCIUM 8.7 mg/dl (8.4-10.2); CREATININE 0.76 mg/dl (0.44-1.00); MAGNESIUM 1.9 mg/dl (1.7-2.5); POTASSIUM 3.6 mmol/L (3.5-5.1); TOTAL PROTEIN 6.6 g/dl (6.1-8.1)
[2017-07-26] MEDS: CIPROFLOXACIN 400MG/D5W 200 ML IVPB SCH ×2 (09:09→20:20)
--- NOTE | 2017-07-26 09:17 | CONS ---
Date/Time of Note Date/Time of Note DATE: 07/26/17 TIME: 09:13 Assessment/Plan Assessment/Plan Additional Assessment/Plan Recurrent biliary colic I discussed laparoscopic, possible open, cholecystectomy and possible cholangiogram with the patient. All benefits, risks, alternatives discussed in detail. All questions were answered. The patient elects to proceed Consultation Date/Type/Reason Admit Date/Time Date of Consultation: Jul 26, 2017 Hx of Present Illness The patient is a 37-year-old female with acute onset of right upper quadrant and epigastric pain. This has been her second visit in less than 48 hours to the ER. She also had a prior episode of acute cholecystitis in November. Patient states at this time her pain was to her right shoulder and back. She denies nausea or vomiting. Past Medical History Medical History: no pertinent history Past Surgical History Past Surgical Hx: no surgical history Family History Significant Family History: no pertinent family hx Social History Alcohol Use: none Smoking Status: Never smoker Exam/Review of Systems Vital Signs Vitals Vital Signs Date Time Temp Pulse Resp B/P Pulse Ox O2 Delivery O2 Flow Rate FiO2 07/26/17 07:30 98.1 62 18 121/80 100 Room Air 07/25/17 20:47 2.0 Intake and Output 07/25/17 07/25/17 07/26/17 14:59 22:59 06:59 Intake Total 200 ml 1180 ml Output Total 1400 ml Balance 200 ml -220 ml Exam Constitutional: oriented, well developed Psych: nl mood/affect, no complaints Head: normocephalic Eyes: nl conjunctiva ENMT: nl external ears & nose Neck: supple Respiratory: clear to auscultation Cardiovascular: regular rate and rhythm Gastrointestinal: soft, tender (to right upper quadrant) Results Result Diagram: 07/26/17 0628 07/26/1728 Results 24 hrs Laboratory Tests Test 07/25/17 14:24 07/25/17 14:36 07/26/17 06:28 Urine Color YELLOW Urine Clarity SLIGHTLY CLOUDY A Urine pH 6.0 Urine Specific [place] 1.021 Urine Ketones 2+ H Urine Nitrite NEGATIVE Urine Bilirubin NEGATIVE Urine Urobilinogen NEGATIVE Urine Leukocyte Esterase NEGATIVE Urine Microscopic RBC 7 H Urine Microscopic WBC 7 H Urine Squamous Epithelial Cells FEW Urine Mucus FEW A Urine Hemoglobin 3+ H Urine Glucose NEGATIVE Urine Total Protein NEGATIVE White Blood Count 11.3 #H 7.1 # Red Blood Count 5.22 4.38 Hemoglobin 14.0 12.0 Hematocrit 41.2 35.4 L Mean Corpuscular Volume 78.9 L 80.8 L Mean Corpuscular Hemoglobin 26.8 L 27.4 L Mean Corpuscular Hemoglobin Concent 34.0 33.9 Red Cell Distribution Width 13.1 13.2 Platelet Count 394 304 # Mean Platelet Volume 9.6 9.7 Neutrophils % 82.2 H 65.7 Lymphocytes % 11.9 L 21.8 Monocytes % 4.9 10.8 Eosinophils % 0.2 1.0 Basophils % 0.4 0.4 Nucleated Red Blood Cells % 0.0 0.0 Neutrophils # 9.3 H 4.6 Lymphocytes # 1.4 1.5 Monocytes # 0.6 0.8 Eosinophils # 0.0 0.1 Basophils # 0.0 0.0 Nucleated Red Blood Cells # 0.0 0.0 Sodium Level 139 142 Potassium Level 4.2 3.6 Chloride Level 100 106 Carbon Dioxide Level 26 26 Anion Gap 17 H 14 Blood Urea Nitrogen 9 6 L Creatinine 0.75 0.76 Glucose Level 98 96 Calcium Level 9.8 8.7 Total Bilirubin 0.6 0.5 Direct Bilirubin 0.00 0.00 Indirect Bilirubin 0.6 0.5 Aspartate Amino Transf (AST/SGOT) 26 20 Alanine Aminotransferase (ALT/SGPT) 33 29 Alkaline Phosphatase 61 48 Total Protein 8.1 6.6 # Albumin 4.5 3.8 Globulin 3.60 H 2.80 Albumin/Globulin Ratio 1.25 1.35 Lipase 74 Magnesium Level 1.9 Imaging Free Text/Dictation Patient: NURY OBREGON : 1980 Age: 37 Sex: F MR #: [id number] DOS: 07/25/17 1347 Ordering MD: DOMINGO PRIDE PA-C Location: [facility] Room/Bed: PROCEDURE: US Abdomen (right upper quadrant). CLINICAL INDICATION: Right upper quadrant abdomen pain. TECHNIQUE: Multiple real-time longitudinal and transverse images of the right upper quadrant of the abdomen were acquired utilizing a curved array transducer. Images were reviewed on a high-resolution PACS workstation. COMPARISON: Right upper quadrant abdomen ultrasound dated July 23, 2017 which demonstrated gallstones in the gallbladder and no evidence of cholecystitis. FINDINGS: The liver is normal in size and normal in echogenicity. There is no focal hepatic lesion. Color Doppler and pulsed Doppler sonography demonstrate normal antegrade flow in the portal vein. As seen previously, there are gallstones in the gallbladder. There is a small amount of fluid adjacent to the gallbladder. There is mild gallbladder wall thickening in measuring 4 mm. The bile ducts are normal with the common bile duct measuring 4.7 mm in diameter. The visualized portions of the pancreas are unremarkable with obscuration of the tail of the pancreas. No free fluid is present. The right kidney measures 9.7 cm. There is normal echogenicity of the right kidney. There is no perinephric fluid collection. No hydronephrosis, mass, or calculus is seen. IMPRESSION: 1. Gallstones in the gallbladder, mild gallbladder wall thickening and adjacent fluid. Findings are suspicious for cholecystitis. Clinical correlation advised. 2. Otherwise normal right upper quadrant abdomen ultrasound. RPTAT: QQ .Korey Luna MD, MD Date Time Electronically viewed and signed by .Korey Luna MD, MD on 07/25/2017 Medications Medications Current Medications Ciprofloxacin/ Dextrose 200 ml @ 200 mls/hr Q12 IVPB Last administered on 09:09; Admin Dose 200 MLS/HR; Start 07/25/17 at 21:00 Metronidazole 100 ml @ 100 mls/hr Q8 IVPB Last administered on 07/26/17 05: 20; Admin Dose 100 MLS/HR; Start 07/25/17 at 22:00 Dextrose/Sodium Chloride (D5-1/2ns) 1,000 ml @ 100 mls/hr Q10H IV Last administered on 07/26/17 05:26; Admin Dose 100 MLS/HR; Start 07/25/17 at 17: 47 Lorazepam (Ativan) 0.5 mg Q6H PRN IV ANXIETY; Start 07/25/17 at 18:00 Ondansetron HCl (Zofran Inj) 4 mg Q6H PRN IV NAUSEA AND/OR VOMITING; Start at 18:00 Acetaminophen (Tylenol Tab) 650 mg Q6H PRN PO PAIN LEVEL 1-3 OR FEVER; Start 07/25/17 at 18:00 Acetaminophen/ Hydrocodone Bitart ([place] (5/325)) 1 tab Q6H PRN PO PAIN LEVEL 4 -6; Start 07/25/17 at 18:00 Morphine Sulfate (morphine) 2 mg Q4H PRN IV PAIN LEVEL 7-10 Last administered on 07/26/17 05:32; Admin Dose 2 MG; Start 07/25/17 at 18:00 Magnesium Hydroxide (Milk Of Mag) 30 ml DAILY PRN PO CONSTIPATION; Start 07/25 at 18:00 Bisacodyl (Dulcolax) 5 mg DAILY PRN PO CONSTIPATION; Start 07/25/17 at 18:00 Heparin Sodium (Porcine) (Heparin (5000 Units/0.5 ml)) 5,000 unit Q8 SC Last administered on 07/26/17 05:23; Admin Dose 5,000 UNIT; Start 07/25/17 at 22: 00 Influenza Virus Vaccine (Fluzone) 0.5 ml ONCE ONCE IM* ; Start 07/28/17 at 09: 00; Stop 07/28/17 at 09:01 ZAHIRA AL MD Jul 26, 2017 09:17
--- NOTE | 2017-07-26 09:18 | SIPON ---
Date/Time of Note Date/Time of Note DATE: 07/26/17 TIME: 09:17 Operative Report Preoperative Diagnosis Symptomatic cholelithiasis Postoperative Diagnosis Acute cholecystitis Operation/Procedure Performed Laparoscopic cholecystectomy Surgeon see signature line periodontal assistant None Anesthesia: general Estimated blood loss: 10 - 50 ml's Transfusion Required none Specimen Gallbladder Grafts/Implants none Complications none ZAHIRA AL MD Jul 26, 2017 09:17
--- NOTE | 2017-07-26 09:21 | OPR ---
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 I discussed proceeding with a laparoscopic, possible open, cholecystectomy and possible angiogram. All benefits, risks, alternatives discussed in detail. All questions were answered. The patient elects to proceed. Procedure Description The patient was brought to operative room placed supine on the table. After preoperative antibiotics and SCDs were applied, the patient was intubated and the abdomen was cleaned, prepped and draped in usual sterile fashion. All incisions were infiltrated with 1% lidocaine with epi house Marcaine prior incision. An 11 mm was made in the umbilicus. Using a 5 mm laparoscope containing trocar, the abdomen was entered direct vision insufflated 50 mm of CO2. Following trochars and placed direct vision: A right upper quadrant from 5 mm, right lower quadrant 5 mm, and and a 5 mm subxiphoid trocar. The 5 mm umbilical trocar was exchanged 11 mm direct vision. The gallbladder was thickened and distended and consistent with acute cholecystitis. I placed an aspirating needle in the gallbladder and aspirated approximately 30 cc of white bile. The gallbladder was then grasped at the fundus and retracted over the liver. Odell's pouch was identified and retracted laterally. The peritoneum under Odell's is scored medially and laterally. I dissected the gallbladder off the cystic plate of the liver. I then dissected the cystic duct and cystic artery. I like critical view of safety worse when I saw my cystic duct, cystic artery and no intervening structures. The duct and artery were both clipped twice proximally once distally individually and divided. The gallbladder was then removed from the gallbladder fossa with electrocautery. It was placed in a bag and removed from the 11 mm trocar site port. I irrigated and aspirated out the right upper quadrant to left was clear. I visualized the gallbladder fossa. It was hemostatic. There is no evidence of bleeding or bile staining. I closed the fascia of the 12 mm trocar site with 0 Vicryl using an Endo Close device per. Skin incisions were all closed with 4 Monocryl, Mastisol, and Steri -Strips. A 2 x 2 gauze and Tegaderm was placed to the umbilical incision only. The patient taught procedure well was extubated in the OR and transferred to recovery room in stable condition ZAHIRA AL MD Jul 26, 2017 09:21
--- NOTE | 2017-07-26 11:32 | PN ---
Date/Time of Note Date/Time of Note DATE: 07/26/17 TIME: 11:27 Assessment/Plan VTE Prophylaxis VTE Prophylaxis Intervention: ambulation Lines/Catheters IV C[facility]ter Type (from [facility] Peripheral IV Assessment/Plan Chief Complaint/Hosp Course 37-year-old female presenting with recurrent right-sided abdominal pain, who was noted with cholelithiasis with possible cholecystitis by imaging. 1. Symptomatic cholelithiasis. Status: Acute. Remarks: Needing surgical intervention. -Patient is scheduled for laparoscopic cholecystectomy today. -Postoperative diet,abx,anticoagulation per surgery 2. Obesity Status: Chronic. -Therapeutic lifestyle changes/weight reduction advised. DVT prophylaxis: SCDs. Follow-up with surgery recommendation postoperatively. Patient was seen in collaboration with . Problems: Subjective 24 Hr Interval Summary Free Text/Dictation No acute distress. Patient with right-sided pain, improved from prior. Scheduled for cholecystectomy today. Exam/Review of Systems Vital Signs Vitals Vital Signs Date Time Temp Pulse Resp B/P Pulse Ox O2 Delivery O2 Flow Rate FiO2 07/26/17 07:30 98.1 62 18 121/80 100 Room Air 07/25/17 20:47 2.0 Intake and Output 07/25/17 07/25/17 07/26/17 15:00 23:00 07:00 Intake Total 200 ml 1180 ml Output Total 1400 ml Balance 200 ml -220 ml Exam General: Well developed,adequately built, not in any acute distress . HEENT: Normocephalic, Atraumatic, No laceration or hematoma; Eyes: PEERL, Conjunctiva clear, Anicteric sclera Neck: Supple without any lymphadenopathy, nontender, no JVD, no carotid bruits, trachea midline, no thyromegaly Cardiac: S1, S2 auscultated, regular rhythm and rate, no mumurs or gallop Pulmonary: Normal respiratory effort. Chest clear to auscultation bilaterally, no adventitious breath sounds GI: Tenderness to right lower quadrant. Abdomen normal to inspection. Soft, non- distended, no masses, no rebound tenderness or guarding. Bowel sounds active on all four quadrants Genitourinary: Deferred Extremities: No cyanosis, clubbing, or edema. Pulses [2+] bilaterally. Full ROM on all four extremities. No focal weakness appreciated. Neurologic: Alert to person, place, time, and situation. Affect appropriate, intact sensation. Skin: Clean,dry, and intact. No ecchymosis, no rashes, or lesions Results Result Diagram: 07/26/17 0628 07/26/17 0628 Results 24 hrs Laboratory Tests Test 07/25/17 14:24 07/25/17 14:36 07/26/17 06:28 Urine Color YELLOW Urine Clarity SLIGHTLY CLOUDY A Urine pH 6.0 Urine Specific [place] 1.021 Urine Ketones 2+ H Urine Nitrite NEGATIVE Urine Bilirubin NEGATIVE Urine Urobilinogen NEGATIVE Urine Leukocyte Esterase NEGATIVE Urine Microscopic RBC 7 H Urine Microscopic WBC 7 H Urine Squamous Epithelial Cells FEW Urine Mucus FEW A Urine Hemoglobin 3+ H Urine Glucose NEGATIVE Urine Total Protein NEGATIVE White Blood Count 11.3 #H 7.1 # Red Blood Count 5.22 4.38 Hemoglobin 14.0 12.0 Hematocrit 41.2 35.4 L Mean Corpuscular Volume 78.9 L 80.8 L Mean Corpuscular Hemoglobin 26.8 L 27.4 L Mean Corpuscular Hemoglobin Concent 34.0 33.9 Red Cell Distribution Width 13.1 13.2 Platelet Count 394 304 # Mean Platelet Volume 9.6 9.7 Neutrophils % 82.2 H 65.7 Lymphocytes % 11.9 L 21.8 Monocytes % 4.9 10.8 Eosinophils % 0.2 1.0 Basophils % 0.4 0.4 Nucleated Red Blood Cells % 0.0 0.0 Neutrophils # 9.3 H 4.6 Lymphocytes # 1.4 1.5 Monocytes # 0.6 0.8 Eosinophils # 0.0 0.1 Basophils # 0.0 0.0 Nucleated Red Blood Cells # 0.0 0.0 Sodium Level 139 142 Potassium Level 4.2 3.6 Chloride Level 100 106 Carbon Dioxide Level 26 26 Anion Gap 17 H 14 Blood Urea Nitrogen 9 6 L Creatinine 0.75 0.76 Glucose Level 98 96 Calcium Level 9.8 8.7 Total Bilirubin 0.6 0.5 Direct Bilirubin 0.00 0.00 Indirect Bilirubin 0.6 0.5 Aspartate Amino Transf (AST/SGOT) 26 20 Alanine Aminotransferase (ALT/SGPT) 33 29 Alkaline Phosphatase 61 48 Total Protein 8.1 6.6 # Albumin 4.5 3.8 Globulin 3.60 H 2.80 Albumin/Globulin Ratio 1.25 1.35 Lipase 74 Magnesium Level 1.9 Medications Medications Current Medications Ciprofloxacin/ Dextrose 200 ml @ 200 mls/hr Q12 IVPB Last administered on 09:09; Admin Dose 200 MLS/HR; Start 07/25/17 at 21:00 Metronidazole 100 ml @ 100 mls/hr Q8 IVPB Last administered on 07/26/17 05: 20; Admin Dose 100 MLS/HR; Start 07/25/17 at 22:00 Dextrose/Sodium Chloride (D5-1/2ns) 1,000 ml @ 100 mls/hr Q10H IV Last administered on 07/26/17 05:26; Admin Dose 100 MLS/HR; Start 07/25/17 at 17: 47 Lorazepam (Ativan) 0.5 mg Q6H PRN IV ANXIETY; Start 07/25/17 at 18:00 Ondansetron HCl (Zofran Inj) 4 mg Q6H PRN IV NAUSEA AND/OR VOMITING; Start at 18:00 Acetaminophen (Tylenol Tab) 650 mg Q6H PRN PO PAIN LEVEL 1-3 OR FEVER; Start 07/25/17 at 18:00 Acetaminophen/ Hydrocodone Bitart ([place] (5/325)) 1 tab Q6H PRN PO PAIN LEVEL 4 -6; Start 07/25/17 at 18:00 Morphine Sulfate (morphine) 2 mg Q4H PRN IV PAIN LEVEL 7-10 Last administered on 07/26/17 05:32; Admin Dose 2 MG; Start 07/25/17 at 18:00 Magnesium Hydroxide (Milk Of Mag) 30 ml DAILY PRN PO CONSTIPATION; Start 07/25 at 18:00 Bisacodyl (Dulcolax) 5 mg DAILY PRN PO CONSTIPATION; Start 07/25/17 at 18:00 Heparin Sodium (Porcine) (Heparin (5000 Units/0.5 ml)) 5,000 unit Q8 SC Last administered on 07/26/17 05:23; Admin Dose 5,000 UNIT; Start 07/25/17 at 22: 00 Influenza Virus Vaccine (Fluzone) 0.5 ml ONCE ONCE IM* ; Start 07/28/17 at 09: 00; Stop 07/28/17 at 09:01 SHAINA OAKLEY NP Jul 26, 2017 11:32
[2017-07-26] MEDS ORDERED: ACETAMINOPHEN 325 MG TAB PO PRN (13:00)
[2017-07-26] MEDS ORDERED: IBUPROFEN 600 MG TAB PO PRN (13:00)
[2017-07-26] MEDS ORDERED: HYDROmorphONE 0.5 MG/0.5 ML SYG IV PRN (13:00)
[2017-07-26] MEDS ORDERED: ONDANSETRON 4 MG INJ IV PRN ×2 (13:00→13:30)
[2017-07-26] MEDS ORDERED: HYDROCODONE/APAP (10/325) TAB PO PRN (13:00)
[2017-07-26] MEDS ORDERED: SUCCINYLCHOLINE CHLORIDE 100 MG/5 ML SYG IV ONE (13:13)
[2017-07-26] MEDS ORDERED: GLYCOPYRROLATE 1 MG INJ ONE (13:13)
[2017-07-26] MEDS ORDERED: ROCURONIUM 50 MG INJ ONE (13:13)
[2017-07-26] MEDS ORDERED: LIDOCAINE 2% (SDV) 5 ML INJ ONE (13:13)
[2017-07-26] MEDS ORDERED: PROPOFOL 20 ML ONE (13:14)
[2017-07-26] MEDS ORDERED: FENTAnyl 50 MCG/ML VIAL ONE (13:14)
[2017-07-26] MEDS ORDERED: MIDAZOLAM 1 MG/ML 2 ML INJ ONE (13:14)
[2017-07-26] MEDS ORDERED: LIDOCAINE 1% (MPF) 30 ML INJ ONE (13:22)
[2017-07-26] MEDS ORDERED: BUPIVACAINE 0.25%/EPI (SDV) 30 ML INJ ONE (13:22)
[2017-07-26] MEDS ORDERED: PHENYLephrine (100 MCG/ML) 5ML SYG ONE (13:23)
[2017-07-26] MEDS ORDERED: ONDANSETRON 4 MG INJ ONE (13:25)
[2017-07-26] MEDS ORDERED: DEXAMETHASONE 4 MG/ML 1 ML INJ ONE (13:25)
[2017-07-26] MEDS ORDERED: FAMOTIDINE 20 MG INJ ONE (13:26)
[2017-07-26] MEDS ORDERED: MEPERIDINE 25 MG INJ IV PRN (13:30)
[2017-07-26] MEDS ORDERED: PROCHLORPERAZINE 10 MG INJ IV PRN (13:30)
[2017-07-26] MEDS ORDERED: DIPHENHYDRAMINE 50 MG INJ IV PRN (13:30)
[2017-07-26] MEDS ORDERED: HYDROmorphONE (0.2 MG/ML) 10ML SYG IV PRN ×3 (13:30)
[2017-07-26] MEDS ORDERED: FENTAnyl 50 MCG/ML VIAL IV PRN ×3 (13:30)
[2017-07-26] MEDS ORDERED: EPHEDrine SULFATE 50 MG/5 ML SYG ONE (13:32)
[2017-07-26] MEDS ORDERED: SUGAMMADEX SODIUM 200 MG/2 ML VIAL IV ONE ×2 (13:49→13:55)
[2017-07-26] MEDS: KETOROLAC 30 MG INJ IV SCH ×2 (14:22→18:58)
[2017-07-26] MEDS: CEFTRIAXONE 1 GM/50 ML (PMX) 50 ML IVPB SCH (15:18)
[2017-07-26] MEDS: D5-NS + KCL 20 MEQ 1,000 ML IV SCH ×2 (15:19→22:57)
[2017-07-27] MEDS: KETOROLAC 30 MG INJ IV SCH ×3 (01:15→13:25)
[2017-07-27 01:55] VITALS: BP 114/57; RESP 18
[2017-07-27] MEDS: metroNIDAZOLE 500 MG/NS (PMX) 100 ML IVPB SCH ×2 (05:47→14:53)
[2017-07-27] MEDS: HEPARIN 5,000 UNIT/0.5 ML VIAL SC SCH (05:49)
[2017-07-27 06:32] LABS: BASOPHILS % 0.2 % (0.0-2.0); HEMATOCRIT 35.4 % (37.0-47.0); HEMOGLOBIN 11.6 g/dl (12.0-16.0); LYMPHOCYTES # 1.6 10^3/ul (0.8-2.9); LYMPHOCYTES % 16.1 % (15.0-51.0); MEAN CORPUSCULAR HEMOGLOBIN 26.7 pg (29.0-33.0); MEAN CORPUSCULAR HGB CONC 32.8 g/dl (32.0-37.0); MEAN CORPUSCULAR VOLUME 81.4 fl (82.0-101.0); MEAN PLATELET VOLUME 9.7 fl (7.4-10.4); MONOCYTE # 0.7 10^3/ul (0.3-0.9); MONOCYTES % 6.7 % (0.0-11.0); NEUTROPHIL # 7.4 10^3/ul (1.6-7.5); NEUTROPHILS % 76.7 % (39.0-77.0); PLATELET COUNT 323 10^3/UL (140-415); RED BLOOD COUNT 4.35 10^6/ul (4.20-5.40); RED CELL DISTRIBUTION WIDTH 13.2 % (11.5-14.5); WHITE BLOOD COUNT 9.7 10^3/ul (4.8-10.8)
[2017-07-27] MEDS ORDERED: ENOXAPARIN 40 MG/0.4 ML SYG SC SCH (07:00)
[2017-07-27 07:16] LABS: ALBUMIN 3.6 g/dl (3.3-4.9); ALBUMIN/GLOBULIN RATIO 1.09; BILIRUBIN,INDIRECT 0.3 mg/dl (0-1.1); BILIRUBIN,TOTAL 0.3 mg/dl (0.2-1.3); CALCIUM 9.1 mg/dl (8.4-10.2); CREATININE 0.76 mg/dl (0.44-1.00); POTASSIUM 3.7 mmol/L (3.5-5.1); TOTAL PROTEIN 6.9 g/dl (6.1-8.1)
[2017-07-27 07:54] VITALS: BP 140/73; RESP 12
[2017-07-27] MEDS: D5-NS + KCL 20 MEQ 1,000 ML IV SCH (08:52)
[2017-07-27] MEDS: CIPROFLOXACIN 400MG/D5W 200 ML IVPB SCH (08:52)
[2017-07-27 09:31] LABS: CALCIUM 9.4 mg/dl (8.4-10.2); CREATININE 0.75 mg/dl (0.44-1.00); MAGNESIUM 1.9 mg/dl (1.7-2.5)
[2017-07-27] MEDS: CEFTRIAXONE 1 GM/50 ML (PMX) 50 ML IVPB SCH (13:35)
--- NOTE | 2017-07-27 13:58 | PDOCDIS ---
Discharge Instructions CONDITION Patient Condition: Stable HOME CARE INSTRUCTIONS: Diet Instructions: RegularYour diet recommendation is: Low calorie diet FOLLOW UP/APPOINTMENTS Follow-up Plan Follow-up with Dr. Keyes in 1 week. [address] [facility] [address] [place] [address] Office Follow up with primary care physician in 1 week If you don't have one please let someone know, we can give you resources that may help you pick one. You may also call your insurance company to assign one to you. Review your medication list with your nurse before leaving and if you need new prescriptions please let your nurse know. I may have made changes to your home medications or given you new prescriptions, please let your primary doctor know as well. Stay compliant with your medications and report any side effects to your PCP or pharmacist. Return to the ER if you have any concerns and cannot reach your doctors or call your insurance company, they usually have a nurse that can help you. Call 911 or go to the nearest emergency room if experiencing loss of consciousness, dizziness, chest pain, shortness of breath, vomiting/abdominal pain, speech difficulties, motor weakness or any unusual symptoms. Post operative Instructions *Do not lift anything more than 25 pounds for 6 to 8 weeks *Do not swim or take hot tub bath for 2weeks *Remove dressing and May shower-Use mild soap around site and pat dry *If you notice any oozing, bleeding or other drainage or having fever or chills from site please contact Surgeon's office-If unable to get office, you may go to nearest emergency room SHAINA OAKLEY NP Jul 27, 2017 13:58
[2017-07-27] MEDS ORDERED: DOCU-144 PO (13:59)
[2017-07-27] MEDS ORDERED: OXYC-279 PO (13:59)
--- NOTE | 2017-07-27 14:04 | DS ---
Date/Time of Note Date/Time of Note DATE: 07/27/17 TIME: 14:02 Discharge Summary Admission/Discharge Info Admit Date/Time Jul 25, 2017 at 17:30 Discharge Date/Time Discharge Diagnosis 1. Symptomatic cholelithiasis/cholecystitis. Status post laparoscopic cholecystectomy 2. Obesity Patient Condition: Stable Consults Dr. Keyes, surgery Procedures 07/25/2017. Gallbladder ultrasound. IMPRESSION: 1. Gallstones in the gallbladder, mild gallbladder wall thickening and adjacent fluid. Findings are suspicious for cholecystitis. Clinical correlation advised. 2. Otherwise normal right upper quadrant abdomen ultrasound. 07/26/2017. Left endoscopic cholecystectomy by Dr. Keyes. Hospital Course This is a 37-year-old obese female with no significant past medical history, presented with recurrent right-sided abdominal pain who was noted with cholelithiasis with possible cholecystitis by imaging and was admitted. Patient was kept n.p.o. and was treated with IV fluids and IV antibiotics. Leukocytosis resolved. Patient had surgery evaluation. On 07/26/2017, patient had undergone laparoscopic cholecystectomy. There was no signs of perforation or peritonitis in the operative notes. As per surgery recommendation, there was no need to continue antibiotics. Patient tolerated procedure well. She was feeling back to her baseline and was able to tolerate diet and activities. Pain is very minimal. At this time, as per surgery, patient is medically stable for discharge with outpatient follow-up. Patient was given detailed postoperative instructions. Patient was also instructed on a low calorie diet with regular exercise for underlying obesity. She verbalized discharge instructions. Patient was given prescription for Percocet and Colace by the surgeon. Disposition: Home. Approximately 60 minutes was spent in coordinating the discharge on this patient. Patient was seen in collaboration with . Home Meds Active Scripts Ondansetron (Ondansetron Odt) 4 Mg Tab.rapdis, 4 MG PO Q6H Y for NAUSEA AND/OR VOMITING, #10 TAB Prov:AMEYA BAI MD 07/23/17 Hydrocodone/Acetaminophen ([place] 10-325 Tablet) 1 Each Tablet, 1 TAB PO Q6H Y for PAIN, #7 TAB Prov:AMEYA BAI MD 07/23/17 Reported Medications Acetaminophen* (Acetaminophen*) 500 MG Extra Strength Tablet, 500 MG PO Q4H Y for PAIN AND OR ELEVATED TEMP, TAB 07/23/17 Discontinued Scripts Hydrocodone/Acetaminophen ([place] 5-325 Tablet) 1 Each Tablet, 1 EACH PO Q6, #10 TAB Prov:LYDIA CASTROPedro 12/27/16 Follow-up Plan Follow-up with Dr. Keyes in 1 week. [address] [facility] [address] [place] [address] Office Follow up with primary care physician in 1 week If you don't have one please let someone know, we can give you resources that may help you pick one. You may also call your insurance company to assign one to you. Review your medication list with your nurse before leaving and if you need new prescriptions please let your nurse know. I may have made changes to your home medications or given you new prescriptions, please let your primary doctor know as well. Stay compliant with your medications and report any side effects to your PCP or pharmacist. Return to the ER if you have any concerns and cannot reach your doctors or call your insurance company, they usually have a nurse that can help you. Call 911 or go to the nearest emergency room if experiencing loss of consciousness, dizziness, chest pain, shortness of breath, vomiting/abdominal pain, speech difficulties, motor weakness or any unusual symptoms. Post operative Instructions *Do not lift anything more than 25 pounds for 6 to 8 weeks *Do not swim or take hot tub bath for 2weeks *Remove dressing and May shower-Use mild soap around site and pat dry *If you notice any oozing, bleeding or other drainage or having fever or chills from site please contact Surgeon's office-If unable to get office, you may go to nearest emergency room Primary Care Provider Care Physician No Primary Pending Labs Laboratory Tests Test 07/27/17 05:12 White Blood Count 9.710^3/ul (4.8-10.8) Red Blood Count 4.3510^6/ul (4.20-5.40) Hemoglobin 11.6g/dl (12.0-16.0) Hematocrit 35.4% (37.0-47.0) Mean Corpuscular Volume 81.4fl (82.0-101.0) Mean Corpuscular Hemoglobin 26.7pg (29.0-33.0) Mean Corpuscular Hemoglobin Concent 32.8g/dl (32.0-37.0) Red Cell Distribution Width 13.2% (11.5-14.5) Platelet Count 25513^3/UL (140-415) Mean Platelet Volume 9.7fl (7.4-10.4) Neutrophils % 76.7% (39.0-77.0) Lymphocytes % 16.1% (15.0-51.0) Monocytes % 6.7% (0.0-11.0) Eosinophils % 0.0% (0.0-7.0) Basophils % 0.2% (0.0-2.0) Nucleated Red Blood Cells % 0.0/100WBC (0.0-0.0) Neutrophils # 7.410^3/ul (1.6-7.5) Lymphocytes # 1.610^3/ul (0.8-2.9) Monocytes # 0.710^3/ul (0.3-0.9) Eosinophils # 0.010^3/ul (0.0-0.5) Basophils # 0.010^3/ul (0.0-0.1) Nucleated Red Blood Cells # 0.010^3/ul (0.0-0.0) Sodium Level 144mmol/L (135-144) Potassium Level 3.7mmol/L (3.5-5.1) Chloride Level 107mmol/L (97-110) Carbon Dioxide Level 27mmol/L (21-31) Anion Gap 14 (8-16) Blood Urea Nitrogen 5mg/dl (7-20) Creatinine 0.76mg/dl (0.44-1.00) Glucose Level 113mg/dl (70-220) Calcium Level 9.1mg/dl (8.4-10.2) Magnesium Level 1.9mg/dl (1.7-2.5) Total Bilirubin 0.3mg/dl (0.2-1.3) Direct Bilirubin 0.00mg/dl (0.00-0.20) Indirect Bilirubin 0.3mg/dl (0-1.1) Aspartate Amino Transf (AST/SGOT) 57IU/L (15-46) Alanine Aminotransferase (ALT/SGPT) 52IU/L (13-69) Alkaline Phosphatase 48IU/L (42-121) Total Protein 6.9g/dl (6.1-8.1) Albumin 3.6g/dl (3.3-4.9) Globulin 3.30g/dl (1.3-3.2) Albumin/Globulin Ratio 1.09 SHAINA OAKLEY V. TEMPLATE INSPECTOR Jul 27, 2017 14:04
[2017-07-27 14:43] VITALS: BP 139/74; RESP 12
[2017-07-28] MEDS ORDERED: INFLUENZA VIRUS VACCINE 0.5 ML (DISPENSING) IM* ONE (09:00)
== END 2017-07-27 17:00 | disposition home or self-care (01) | DRG 419 ==
LOC: FTE 13:18 → MS2 17:30
PROVIDERS: ADMIT Internal Medicine; ATTEND Internal Medicine
PROC: 0FT44ZZ Resection of Gallbladder, Percutaneous Endoscopic Approach (ICD-10-PCS; principal; 2017-07-26 13:00)
DX: K80.00 Calculus of gallbladder with acute cholecystitis without obstruction (principal); E66.9 Obesity, unspecified; Z68.32 Body mass index [BMI] 32.0-32.9, adult
CPT/HCPCS: 36415; 76705; 80048; 80053; 81001; 83690; 83735; 85025; 88304; 96365; 96375; J0696; J0744; J1100; J1170; J1644; J1650; J1885; J2175; J2250; J2270; J2370; J2405; J3010; J3480; J7030; J7042

== ENCOUNTER 2018-08-06 19:03 | Emergency (ER) | payer OTHER ==
[~2018-08-06] VITALS: Ht 154.9 cm; Wt 77.3 kg
[~2018-08-06 19:03] MED LIST changes: -ACET-141 PO; +DOCU-144 PO; -HYDR-902 PO; -ONDA4TAB14 PO; +OXYC-279 PO
[2018-08-06 19:34] VITALS: BP 131/77; PULSE 73; RESP 18; Ht 154.9 cm; Wt 77.3 kg
[2018-08-06] MEDS ORDERED: KETOROLAC 30 MG INJ IM STA (21:45)
[2018-08-06] MEDS ORDERED: D-ME118S24 PO (21:46)
[2018-08-06] MEDS ORDERED: IBUP-1542 PO (21:46)
[2018-08-06] MEDS ORDERED: ALBU18HF INHALATION (21:46)
[2018-08-06] MEDS ORDERED: AMOX500T PO (21:47)
--- NOTE | 2018-08-06 21:54 | ERD ---
ER Documentation Chief Complaint Chief Complaint flu-liked symptoms (HAs,nasal/chest congestions,cough) x 2 days HPI 38-year-old female presents for cough, headache times 2 days. Patient has no symptoms subjective fever. She states that the cough is productive of whitish phlegm. She has moderate shortness of breath. She does have a history of asthma however she has not taken albuterol inhaler in about a year. Her head is noted to be in the front part of her head and bilateral nasal area. She denies any chest pain. She denies abdominal pain, nausea, vomiting. She tried aspirin and Tylenol at home without relief. ROS All systems reviewed and are negative except as per history of present illness. Medications Home Meds Active Scripts Amoxicillin Trihydrate (Amoxicillin) 500 Mg Tablet, 500 MG PO BID for sinusitis for 5 Days, #10 TAB Prov:YURY MCNEIL 08/06/18 Ibuprofen* (Motrin*) 600 Mg Tab, 600 MG PO Q6H PRN for PAIN AND OR ELEVATED TEMP, #30 TAB Prov:MCNEILYURY 08/06/18 Albuterol Sulfate* (Ventolin HFA*) 18 Gm Hfa.aer.ad, 2 PUFF INHALATION Q4H, #1 INHALER Prov:YURY MCNEIL 08/06/18 D-Methorphan Hb/P-Epd HCl/Bpm (Bqlyjdzkpu-Huhqwxbrxps-Ux Syr) 118 Ml Syrup, 5 ML PO Q4 PRN for COUGH, #1 BOTTLE Prov:YURY MCNEIL 08/06/18 Docusate Sodium* (Colace*) 100 Mg Capsule, 100 MG PO BID, #60 CAP Prov:SHAINA OAKLEY V. FIELD TRAINER 07/27/17 Oxycodone HCl/Acetaminophen (Percocet 5-325 mg Tablet) 1 Each Tablet, 1 EACH PO Q6 for PAIN, #30 TAB Prov:SHAINA OAKLEY V. FIELD TRAINER 07/27/17 Allergies Allergies: Coded Allergies: No Known Allergies (Unverified Allergy, Unknown, 07/26/17) PMhx/Soc History of Surgery: No Anesthesia Reaction: No Hx Neurological Disorder: No Hx Respiratory Disorders: No Hx Cardiac Disorders: No Hx Psychiatric Problems: No Hx Miscellaneous Medical Probl: No Hx Alcohol Use: No Hx Substance Use: No Hx Tobacco Use: No Smoking Status: Never smoker Physical Exam Vitals Vital Signs Date Temp Pulse Resp B/P (MAP) Pulse Ox O2 O2 Flow FiO2 Time Delivery Rate 08/06/18 97.6 73 18 131/77 98 19:34 (95) Physical Exam Const: No acute distress Head: Atraumatic, tenderness to palpation in the frontal and perinasal sinus area Eyes: Normal Conjunctiva ENT: Normal External Ears, Nose and Mouth. No tonsillar exudate, no tonsillar swelling Neck: Full range of motion. No meningismus. Resp: Clear to auscultation bilaterally Cardio: Regular rate and rhythm, no murmurs Abd: Soft, non tender, non distended. Normal bowel sounds Skin: No petechiae or rashes Back: No midline or flank tenderness Ext: No cyanosis, or edema Neur: Awake and alert Psych: Normal Mood and Affect Results 24 hrs Current Medications Medications Dose Sig/Beth Start Time Status Last (Trade) Ordered Route PRN Stop Time Admin Dose Reason Admin Ketorolac 30 mg ONCE STAT 08/06/18 DC Tromethamine IM 21:45 08/06/18 (Toradol) 21:46 Procedures/MDM Medical Decision Making: Differential diagnosis includes but not limited to upper respiratory infection, pneumonia, sepsis, sinusitis. Patient appeared well on physical examination, nontoxic appearing. Lungs were clear to auscultation bilaterally. There is low suspicion for pneumonia, sepsis. Given patient's cough and frontal and maxillary sinus tenderness to palpation and history of subjective fever patient may have sinusitis possibly bacterial. Patient given a Toradol shot in the ER with relief of symptoms. Patient given prescription for amoxicillin, Bromfed, Motrin, albuterol inhaler. Patient advised to follow up with PCP in 1-2 days. Patient advised to return to ED for new or worsening symptoms. Patient stable on discharge from the ED. Disclaimer: Inadvertent spelling and grammatical errors are likely due to EHR/dictation software use and do not reflect on the overall quality of patient care. Also, please note that the electronic time recorded on this note does not necessarily reflect the actual time of the patient encounter. Departure Diagnosis: Primary Impression: Sinusitis Sinusitis location: frontal Chronicity: acute Recurrence: not specified as recurrent Qualified Codes: J01.10 - Acute frontal sinusitis, unspecified Condition: Fair Patient Instructions: Sinusitis, Abx Tx Referrals: [facility] YOU HAVE RECEIVED A MEDICAL SCREENING EXAM AND THE RESULTS INDICATE THAT YOU DO NOT HAVE A CONDITION THAT REQUIRES URGENT TREATMENT IN THE EMERGENCY DEPARTMENT. FURTHER EVALUATION AND TREATMENT OF YOUR CONDITION CAN WAIT UNTIL YOU ARE SEEN IN YOUR DOCTORS OFFICE WITHIN THE NEXT 1-2 DAYS. IT IS YOUR RESPONSIBILITY TO MAKE AN APPOINTMENT FOR FOLOW-UP CARE. IF YOU HAVE A PRIMARY DOCTOR --you should call your primary doctor and schedule and appointment IF YOU DO NOT HAVE A PRIMARY DOCTOR YOU CAN CALL OUR PHYSICIAN REFERRAL HOTLINE AT . IF YOU CAN NOT AFFORD TO SEE A PHYSICIAN YOU CAN CHOSE FROM THE FOLLOWING FORMERLY [facility], [facility] INSTITUTIONS: [facility] [id number] [place] [address] [facility] [address] [place] [address] [facility] [address] [place] [address] Additional Instructions: Llame al doctor MAANA y julieta rj NINI PARA DENTRO DE 1-2 SIMEON.Dgale a la secretaria que nosotros le instruimos hacer esta nini.Avise o llame si ontiveros condicin se empeora antes de la nini. Regresa aqui si peor o no mejor. YURY MCNEIL DO Aug 06, 2018 21:54
== END 2018-08-06 22:12 | disposition home or self-care (01) ==
LOC: FTE 19:03
DX: J01.10 Acute frontal sinusitis, unspecified (principal)
CPT/HCPCS: 81025; 96372; J1885; Z7502

== ENCOUNTER 2018-09-18 06:21 | Emergency (ER) | payer OTHER ==
[~2018-09-18] VITALS: Ht 162.6 cm; Wt 81.1 kg
[~2018-09-18 06:21] MED LIST changes: +ALBU18HF INHALATION; +AMOX500T PO; +D-ME118S24 PO; +IBUP-1542 PO
[2018-09-18 06:24] VITALS: BP 145/75; PULSE 75; RESP 18; Ht 162.6 cm; Wt 81.1 kg
[2018-09-18] MEDS ORDERED: FLUT9.9S NASAL (06:42)
[2018-09-18] MEDS ORDERED: D-ME473S2 PO (06:42)
[2018-09-18] MEDS ORDERED: AZIT500T3 PO (06:42)
--- NOTE | 2018-09-18 06:46 | ERD ---
ER Documentation Chief Complaint Chief Complaint HEADACHE , LT EAR PAIN , RUNNY NOSE HPI 38-year-old female presents with one week history of frontal headache, pain in the maxillary sinuses, left ear pain, purulent nasal discharge. She had fevers at home by report but no fever triage. She has cough as well. She denies chest pain, vomiting, abdominal pain. ROS All systems reviewed and are negative except as per history of present illness. Medications Home Meds Active Scripts Dextromethorphan Hb-Promethazine Hcl* (Promethazine DM* Syrup) 473 Ml Syrup, 5 ML PO Q6 PRN for COUGH for 5 Days, ML Prov:ERIC FRANCISCO MD 09/18/18 Fluticasone Propionate (Flonase Allergy Relief) 9.9 Ml [place].susp, 1 SPRAY NASAL BID for 10 Days, #1 BOTTLE TO EACH NOSTRIL Prov:ERIC FRANCISCO MD 09/18/18 Azithromycin* (Zithromax*) 500 Mg Tablet, 500 MG PO DAILY for 3 Days, TAB Prov:ERIC FRANCISCO MD 09/18/18 Amoxicillin Trihydrate (Amoxicillin) 500 Mg Tablet, 500 MG PO BID for sinusitis for 5 Days, #10 TAB Prov:YURY MCNEIL DO 08/06/18 Ibuprofen* (Motrin*) 600 Mg Tab, 600 MG PO Q6H PRN for PAIN AND OR ELEVATED TEMP, #30 TAB Prov:YURY MCNEIL DO 08/06/18 Albuterol Sulfate* (Ventolin HFA*) 18 Gm Hfa.aer.ad, 2 PUFF INHALATION Q4H, #1 INHALER Prov:YURY MCNEIL DO 08/06/18 D-Methorphan Hb/P-Epd HCl/Bpm (Kcvnkwqsxk-Pglzjhubqdq-Oc Syr) 118 Ml Syrup, 5 ML PO Q4 PRN for COUGH, #1 BOTTLE Prov:YURY MCNEIL DO 08/06/18 Docusate Sodium* (Colace*) 100 Mg Capsule, 100 MG PO BID, #60 CAP Prov:SHAINA OAKLEY NP 07/27/17 Oxycodone HCl/Acetaminophen (Percocet 5-325 mg Tablet) 1 Each Tablet, 1 EACH PO Q6 for PAIN, #30 TAB Prov:SHAINA OAKLEY NP 07/27/17 Allergies Allergies: Coded Allergies: No Known Allergies (Unverified Allergy, Unknown, 09/18/18) PMhx/Soc History of Surgery: No Anesthesia Reaction: No Hx Neurological Disorder: No Hx Respiratory Disorders: No Hx Cardiac Disorders: No Hx Psychiatric Problems: No Hx Miscellaneous Medical Probl: No Hx Alcohol Use: No Hx Substance Use: No Hx Tobacco Use: No Smoking Status: Never smoker Physical Exam Vitals Vital Signs Date Temp Pulse Resp B/P (MAP) Pulse Ox O2 O2 Flow FiO2 Time Delivery Rate 09/18/18 97.6 75 18 145/75 98 06:24 (98) Physical Exam Const: No acute distress Head: Atraumatic Eyes: Normal Conjunctiva ENT: Normal External Ears, Nose and Mouth. TMs with clear fluid and retracted. Tender maxillary sinus. Postnasal drip. Neck: Full range of motion. No meningismus. Resp: Clear to auscultation bilaterally. Dry cough without rales, wheezing or retractions. Cardio: Regular rate and rhythm, no murmurs Abd: Soft, non tender, non distended. Normal bowel sounds Skin: No petechiae or rashes Back: No midline or flank tenderness Ext: No cyanosis, or edema Neur: Awake and alert Psych: Normal Mood and Affect Procedures/MDM Patient presents with URI symptoms worsening over last week. She has signs of sinusitis we will treat empirically with Zithromax 500 mg x 3 days, promethazine, Flonase, primary care follow-up and return precautions. She has no signs or symptoms of chest pain, abdominal pain, additional current concerning symptoms. The patient was stable with no new complaints during the ER course. Clinically, there is no current evidence to suggest meningitis, sepsis, acute abdomen, pneumonia, stroke, acute coronary syndrome, pulmonary embolism, aortic dissection or any other emergent condition appearing to require further evaluation or hospitalization. Patient counseled regarding my diagnostic impression and care plan. Prior to discharge all questions answered. Pt agrees with treatment plan and understands strict return precautions. Pt is instructed to follow up with primary care provider within 24-48 hours. Precautionary instructions provided including instructions to return to the ER if not improving or for any worsening or changing symptoms or concerns. , Departure Diagnosis: Primary Impression: Sinusitis Sinusitis location: maxillary Chronicity: acute Recurrence: not specified as recurrent Qualified Codes: J01.00 - Acute maxillary sinusitis, unspecified Additional Impression: Upper respiratory infection URI type: unspecified URI Qualified Codes: J06.9 - Acute upper respiratory infection, unspecified Condition: Stable Patient Instructions: Sinusitis, Abx Tx Additional Instructions: Cheque otro vez con ontiveros doctor primario en el proximo carlson or regresa para mas o nueva simptomas. ERIC FRANCISCO MD Sep 18, 2018 06:46
== END 2018-09-18 06:50 | disposition home or self-care (01) ==
LOC: FTE 06:21
DX: J01.00 Acute maxillary sinusitis, unspecified (principal); J06.9 Acute upper respiratory infection, unspecified
CPT/HCPCS: 99283

== ENCOUNTER 2018-10-15 09:19 | Emergency (ER) | payer OTHER ==
[~2018-10-15] VITALS: Ht 160 cm; Wt 78.7 kg
[~2018-10-15 09:19] MED LIST changes: +AZIT500T3 PO; +D-ME473S2 PO; +FLUT9.9S NASAL
[2018-10-15 09:22] VITALS: Ht 160 cm; Wt 78.7 kg
[2018-10-15] MEDS ORDERED: IBUP-1542 PO (11:58)
[2018-10-15] MEDS ORDERED: NITR-58 PO (11:58)
--- NOTE | 2018-10-15 12:09 | ERD ---
ER Documentation Chief Complaint Chief Complaint VAG BLEED X 10 DAYS WITH PELVIC PAIN HPI Is a 38-year-old female presents the ER for concerns of vaginal bleeding times 10 days. Patient states she uses 3-4 pads per day. Patient also reports pelvic pain and cramping. She denies any lightheadedness or dizziness. Patient states her current menstrual period started on 10-06-18. Previous menstrual period was on 09-21-18. Patient denies previous history of irregular menstrual bleeding. Patient denies any fevers or chills. Patient denies any dysuria, frequency, urgency or hematuria. Patient denies any chest pain or shortness of breath. ROS All systems reviewed and are negative except as per history of present illness. Medications Home Meds Active Scripts Ibuprofen* (Motrin*) 600 Mg Tab, 600 MG PO Q6, #30 TAB Prov:DOMINGO PRIDE PA-C 10/15/18 Nitrofurantoin Monohyd Macrocr* (Macrobid*) 100 Mg Capsr, 100 MG PO BID for 5 Days, CAP Prov:DOMINGO PRIDE PA-C 10/15/18 Dextromethorphan Hb-Promethazine Hcl* (Promethazine DM* Syrup) 473 Ml Syrup, 5 ML PO Q6 PRN for COUGH for 5 Days, ML Prov:ERIC FRANCISCO MD 09/18/18 Fluticasone Propionate (Flonase Allergy Relief) 9.9 Ml [place].susp, 1 SPRAY NASAL BID for 10 Days, #1 BOTTLE TO EACH NOSTRIL Prov:ERIC FRANCISCO MD 09/18/18 Azithromycin* (Zithromax*) 500 Mg Tablet, 500 MG PO DAILY for 3 Days, TAB Prov:ERIC FRANCISCO MD 09/18/18 Amoxicillin Trihydrate (Amoxicillin) 500 Mg Tablet, 500 MG PO BID for sinusitis for 5 Days, #10 TAB Prov:YURY MCNEIL DO 08/06/18 Ibuprofen* (Motrin*) 600 Mg Tab, 600 MG PO Q6H PRN for PAIN AND OR ELEVATED TEMP, #30 TAB Prov:YURY MCNEIL DO 08/06/18 Albuterol Sulfate* (Ventolin HFA*) 18 Gm Hfa.aer.ad, 2 PUFF INHALATION Q4H, #1 INHALER Prov:YURY MCNEIL DO 08/06/18 D-Methorphan Hb/P-Epd HCl/Bpm (Yfujmaqnqe-Qvydjxtpbwa-Hq Syr) 118 Ml Syrup, 5 ML PO Q4 PRN for COUGH, #1 BOTTLE Prov:YURY MCNEIL DO 08/06/18 Docusate Sodium* (Colace*) 100 Mg Capsule, 100 MG PO BID, #60 CAP Prov:OAKLEY,SHAINA V. SEED SALES MANAGER 07/27/17 Oxycodone HCl/Acetaminophen (Percocet 5-325 mg Tablet) 1 Each Tablet, 1 EACH PO Q6 for PAIN, #30 TAB Prov:OAKLEY,SHAINA V. SEED SALES MANAGER 07/27/17 Allergies Allergies: Coded Allergies: No Known Allergies (Unverified Allergy, Unknown, 09/18/18) PMhx/Soc History of Surgery: No Anesthesia Reaction: No Hx Neurological Disorder: No Hx Respiratory Disorders: No Hx Cardiac Disorders: No Hx Psychiatric Problems: No Hx Miscellaneous Medical Probl: No Hx Alcohol Use: No Hx Substance Use: No Hx Tobacco Use: No Smoking Status: Never smoker FmHx Family History: No diabetes Physical Exam Vitals Vital Signs Date Temp Pulse Resp B/P (MAP) Pulse Ox O2 O2 Flow FiO2 Time Delivery Rate 10/15/18 97.9 77 20 125/79 97 Room Air 12:18 (94) 10/15/18 97.9 69 16 127/81 98 09:22 (96) Physical Exam GENERAL: Well-developed, well-nourished female. Appears in no acute distress. HEAD: Normocephalic, atraumatic. EYES: Pupils are equally reactive bilaterally. EOMs grossly intact. No conjunctival erythema. ENT: Moist mucous membranes. No uvula deviation. No kissing tonsils. NECK: Supple. No meningismus. Normal range of motion of the neck. LUNG: Clear to auscultation bilaterally. No rhonchi, wheezing, rales or coarse breath sounds. HEART: Regular rate and rhythm. No murmurs, rubs or gallops. ABDOMEN: soft, nondistended. Tender to palpation in the suprapubic region.. Positive bowel sounds in all four quadrants. No rebound tenderness, no guarding. (-) McBurney's point tenderness. No CVA tenderness. BACK: No midline tenderness. EXTREMITIES: Equal pulses bilaterally. No peripheral clubbing, cyanosis or edema. No unilateral leg swelling. NEUROLOGIC: Alert and oriented. Moving all four extremities without any difficulty. Normal speech. Steady gait. SKIN: Normal color. Warm and dry. No rashes or lesions. Result Diagram: 10/15/18 1032 Results 24 hrs Laboratory Tests Test 10/15/18 10:32 10/15/18 10:52 10/15/18 10:53 White Blood Count 5.9 10^3/ul Red Blood Count 4.70 10^6/ul Hemoglobin 12.4 g/dl Hematocrit 38.3 % Mean Corpuscular Volume 81.5 fl Mean Corpuscular Hemoglobin 26.4 pg Mean Corpuscular 32.4 g/dl Hemoglobin Concent Red Cell Distribution Width 13.2 % Platelet Count 339 10^3/UL Mean Platelet Volume 9.4 fl Immature Granulocytes % 0.300 % Neutrophils % 58.1 % Lymphocytes % 26.7 % Monocytes % 8.0 % Eosinophils % 6.2 % Basophils % 0.7 % Nucleated Red Blood Cells % 0.0 /100WBC Immature Granulocytes # 0.020 10^3/ul Neutrophils # 3.4 10^3/ul Lymphocytes # 1.6 10^3/ul Monocytes # 0.5 10^3/ul Eosinophils # 0.4 10^3/ul Basophils # 0.0 10^3/ul Nucleated Red Blood Cells # 0.0 10^3/ul Bedside Urine pH (LAB) 5.0 Bedside Urine Protein (LAB) 3+ Bedside Urine Glucose (UA) Negative Bedside Urine Ketones (LAB) 1+ Bedside Urine Blood 3+ Bedside Urine Nitrite (LAB) Positive Bedside Urine Leukocyte Esterase 3+ (L POC Beta HCG, Qualitative NEGATIVE Procedures/MDM ED COURSE: The patient was stable throughout ED course. I kept the patient and/or family informed of laboratory and diagnostic imaging results throughout the ED course. DIAGNOSTIC IMAGING: Read by radiologist. Patient: NURY OBREGON : 1980 Age: 38 Sex: F MR #: [id number] DOS: 10/15/18 1008 Ordering MD: DOMINGO PRIDE PA-C Location: [facility]TE Room/Bed: PROCEDURE: US Pelvis. CLINICAL INDICATION: Pelvic pain. Dysfunctional uterine bleeding. TECHNIQUE: Multiple sonographic images of the pelvis were obtained utilizing a transabdominal and endovaginal technique. The images were reviewed on a PACS workstation. COMPARISON: None. FINDINGS: The uterus is retroverted and measures 7.2 x 4.5 x 4.7 cm. The uterus of normal contour and echogenicity. There is a thin well-demarcated endometrial stripe complex which measures 12 millimeters in transverse diameter. There is no fluid in the canal. There is cervical Nabothian cysts. . The right ovary has a normal echotexture and measures 3.4 x 1.7 x 3.3 centimeters . The left ovary has a normal echotexture and measures see 4.9 x 3.6 x 5.6 cm. No solid adnexal masses are noted. There is a 3.9 x 3.0 x 3.8 cm complex cystic mass of the left ovary with mural septations. No solid mural nodule is detected. There is normal arterial flow to both ovaries on color-flow Doppler imaging. No solid pelvic masses seen. There is no free fluid in the pelvis. IMPRESSION: Normal uterus and left ovary. 3.9 x 3.0 x 3.8 cm complex predominately cystic mass left ovary with peripheral septations. Question hemorrhagic cyst. Other etiologies cannot be ruled out including cystadenoma. Follow-up ultrasound should be performed in 6-8 weeks to insure stability. .Reed Dang MD, Date Time Electronically viewed and signed by .Reed Dang MD, MD on 10/15/2018 10:59 .A/ CC: DOMINGO PRIDE PA-C [id number] MEDICAL DECISION MAKING: This is a 38-year-old female who presents the ER for concerns of vaginal bleeding and pelvic cramping times 10 days. Vital signs were reviewed. Patient was afebrile. Patient was hemodynamically stable. Urine test was negative. CBC showed no evidence of systemic infection or severe anemia. UA did show 3+ blood, 3+ leukocyte esterase and positive nitrites. Patient will be sent home with a prescription of Macrobid concerns of UTI. Pelvic ultrasound showed Normal uterus and left ovary. 3.9 x 3.0 x 3.8 cm complex predominately cystic mass left ovary with peripheral septations. Question hemorrhagic cyst. Other etiologies cannot be ruled out including cystadenoma. Follow-up ultrasound should be performed in 6-8 weeks to insure stability. At this time and the patient presentation is most consistent with dysfunctional uterine bleeding, UTI and cystic left ovarian mass. Patient was advised to follow-up with an COMPLIANCE DIRECTOR. Low suspicion for ectopic , threatened , spontaneous , cervical polyp, fibroid, endometriosis, coagulopathy, thrombocytopenia, von Willebrand disease, idiopathic thrombocytopenic purpura,polycystic ovarian syndrome. Patient was nontoxic, [id number] prior to discharge. PRESCRIPTIONS: Ibuprofen, Macrobid DISCHARGE: At this time, patient is stable for discharge and outpatient management. I have instructed the patient to follow-up with his/her primary care physician in 1-2 days. I have instructed the patient to promptly return to the ER for any new or worsening symptoms including increased pain, swelling, redness, warmth or fever. The patient and/or family expressed understanding of and agreement with this plan. All questions were answered. Home care instructions were provided. Disclaimer disclaimer: Inadvertent spelling and grammatical errors are likely due to EHR/dictation software use and do not reflect on the overall quality of patient care. Also, please note that the electronic time recorded on this note does not necessarily reflect the actual time of the patient encounter. Departure Diagnosis: Primary Impression: Dysfunctional uterine bleeding Additional Impressions: UTI (urinary tract infection) Urinary tract infection type: site unspecified Hematuria presence: without hematuria Qualified Codes: N39.0 - Urinary tract infection, site not specified Mass of left ovary Condition: Fair Patient Instructions: Understanding Urinary Tract Infections (UTIs), Dysfunctional Uterine Bleeding Referrals: COMMUNITY CLINICS YOU HAVE RECEIVED A MEDICAL SCREENING EXAM AND THE RESULTS INDICATE THAT YOU DO NOT HAVE A CONDITION THAT REQUIRES URGENT TREATMENT IN THE EMERGENCY DEPARTMENT. FURTHER EVALUATION AND TREATMENT OF YOUR CONDITION CAN WAIT UNTIL YOU ARE SEEN IN YOUR DOCTORS OFFICE WITHIN THE NEXT 1-2 DAYS. IT IS YOUR RESPONSIBILITY TO MAKE AN APPOINTMENT FOR FOLOW-UP CARE. IF YOU HAVE A PRIMARY DOCTOR --you should call your primary doctor and schedule an appointment IF YOU DO NOT HAVE A PRIMARY DOCTOR YOU CAN CALL OUR PHYSICIAN REFERRAL HOTLINE AT IF YOU CAN NOT AFFORD TO SEE A PHYSICIAN YOU CAN CHOSE FROM THE FOLLOWING [facility] CLINICS [facility] [address] [facility] [address] [place] [phone] [facility] [address] [facility] [phone] [facility] [address] [facility] [facility] YOU HAVE RECEIVED A MEDICAL SCREENING EXAM AND THE RESULTS INDICATE THAT YOU DO NOT HAVE A CONDITION THAT REQUIRES URGENT TREATMENT IN THE EMERGENCY DEPARTMENT. FURTHER EVALUATION AND TREATMENT OF YOUR CONDITION CAN WAIT UNTIL YOU ARE SEEN IN YOUR DOCTORS OFFICE WITHIN THE NEXT 1-2 DAYS. IT IS YOUR RESPONSIBILITY TO MAKE AN APPOINTMENT FOR FOLOW-UP CARE. IF YOU HAVE A PRIMARY DOCTOR --you should call your primary doctor and schedule and appointment IF YOU DO NOT HAVE A PRIMARY DOCTOR YOU CAN CALL OUR PHYSICIAN REFERRAL HOTLINE AT . IF YOU CAN NOT AFFORD TO SEE A PHYSICIAN YOU CAN CHOSE FROM THE FOLLOWING [facility] INSTITUTIONS: [facility] [address] [place] [address] [facility] [address] [place] [address] [facility] [address] [place] [address] COMPLIANCE [place] [address] [facility] [address] [place], [place] [phone] OFFICE FAX [facility] [address] [place] [address] [address] [place] [address] [place], [place] [phone] [place] [address] [facility], [address], [facility] [address] [address] [address] [place], [place] [phone] [facility] [address] [place], [place] [phone] [address] [facility] [id number] - [address]عر[address]قي, [place] [address] [facility] [address] [address] ABBOTT, [place] [address] [facility] [address], [facility] [address] [address], [place] [address] [place], [place] [phone] Additional Instructions: Llame al OBGYN MAANA y julieta rj NINI PARA DENTRO DE 1-2 SIMEON.Dgale a la secretaria que nosotros le instruimos hacer esta nini.Avise o llame si ontiveros condicin se empeora antes de la nini. Regresa aqui si peor o no mejor. DOMINGO PRIDE PA-C Oct 15, 2018 12:09
[2018-10-15 12:18] VITALS: BP 125/79; PULSE 77; RESP 20
== END 2018-10-15 12:19 | disposition home or self-care (01) ==
LOC: FTE 09:19
DX: N93.8 Other specified abnormal uterine and vaginal bleeding (principal); N39.0 Urinary tract infection, site not specified; N83.8 Other noninflammatory disorders of ovary, fallopian tube and broad ligament
CPT/HCPCS: 76830; 76856; 81003; 81025; 85025; Z7502

== ENCOUNTER 2018-11-06 20:52 | Emergency (ER) | payer OTHER ==
[~2018-11-06] VITALS: Ht 157.5 cm; Wt 79.1 kg
[~2018-11-06 20:52] MED LIST changes: +NITR-58 PO
[2018-11-06 20:54] VITALS: Ht 157.5 cm; Wt 79.1 kg
[2018-11-06] MEDS ORDERED: ACETAMINOPHEN 325 MG TAB PO STA (21:50)
[2018-11-06] MEDS ORDERED: SOD CHLORIDE 0.9% 1,000 ML IV STA (21:50)
[2018-11-06] MEDS ORDERED: IBUP-1542 PO (23:02)
[2018-11-06 23:21] VITALS: BP 113/62; PULSE 62; RESP 18
--- NOTE | 2018-11-06 23:22 | ERD ---
ER Documentation Chief Complaint Chief Complaint VAG BLEEDING [id number] HPI This is a 38-year-old female presents to the ED complaining of vaginal bleeding times 10 days. Patient states she soaks 4-5 pads per day. Her last menstrual cycle was September, and lasted 10 days. She was seen here for this same issue on October 15. Workup at that time including CBC and pelvic ultrasound revealed a left ovarian cyst, otherwise unremarkable. Patient is scheduled to see her lens examiner on Wednesday but states she felt dizzy and came here for further evaluation. She denies any syncopal episodes. Denies any urinary frequency, urgency or any other symptoms. No history of irregular bleeding in the past. ROS All systems reviewed and are negative except as per history of present illness. Medications Home Meds Active Scripts Ibuprofen* (Motrin*) 600 Mg Tab, 600 MG PO Q6H PRN for PAIN AND OR ELEVATED TEMP, #30 TAB Prov:OG GARCIA PA-C 11/06/18 Ibuprofen* (Motrin*) 600 Mg Tab, 600 MG PO Q6, #30 TAB Prov:DOMINGO PRIDE PA-C 10/15/18 Nitrofurantoin Monohyd Macrocr* (Macrobid*) 100 Mg Capsr, 100 MG PO BID for 5 Days, CAP Prov:DOMINGO PRIDE PA-C 10/15/18 Dextromethorphan Hb-Promethazine Hcl* (Promethazine DM* Syrup) 473 Ml Syrup, 5 ML PO Q6 PRN for COUGH for 5 Days, ML Prov:ERIC FRANCISCO MD 09/18/18 Fluticasone Propionate (Flonase Allergy Relief) 9.9 Ml [place].susp, 1 SPRAY NASAL BID for 10 Days, #1 BOTTLE TO EACH NOSTRIL Prov:ERIC FRANCISCO MD 09/18/18 Azithromycin* (Zithromax*) 500 Mg Tablet, 500 MG PO DAILY for 3 Days, TAB Prov:ERIC FRANCISCO MD 09/18/18 Amoxicillin Trihydrate (Amoxicillin) 500 Mg Tablet, 500 MG PO BID for sinusitis for 5 Days, #10 TAB Prov:YURY MCNEIL DO 08/06/18 Ibuprofen* (Motrin*) 600 Mg Tab, 600 MG PO Q6H PRN for PAIN AND OR ELEVATED TEMP, #30 TAB Prov:YURY MCNEIL DO 08/06/18 Albuterol Sulfate* (Ventolin HFA*) 18 Gm Hfa.aer.ad, 2 PUFF INHALATION Q4H, #1 INHALER Prov:YURY MCNEIL DO 08/06/18 D-Methorphan Hb/P-Epd HCl/Bpm (Uylturkyyx-Xkwpipkaoeh-Rk Syr) 118 Ml Syrup, 5 ML PO Q4 PRN for COUGH, #1 BOTTLE Prov:YURY MCNEIL DO 08/06/18 Docusate Sodium* (Colace*) 100 Mg Capsule, 100 MG PO BID, #60 CAP Prov:OAKLEY,SHAINA V. SALES PROMOTION REPRESENTATIVE 07/27/17 Oxycodone HCl/Acetaminophen (Percocet 5-325 mg Tablet) 1 Each Tablet, 1 EACH PO Q6 for PAIN, #30 TAB Prov:OAKLEY,SHAINA V. SALES PROMOTION REPRESENTATIVE 07/27/17 Allergies Allergies: Coded Allergies: No Known Allergies (Unverified Allergy, Unknown, 11/06/18) PMhx/Soc Medical and Surgical Hx: pt denies Medical Hx, pt denies Surgical Hx History of Surgery: No Anesthesia Reaction: No Hx Neurological Disorder: No Hx Respiratory Disorders: No Hx Cardiac Disorders: No Hx Psychiatric Problems: No Hx Miscellaneous Medical Probl: No Hx Alcohol Use: No Hx Substance Use: No Hx Tobacco Use: No Smoking Status: Never smoker Physical Exam Vitals Vital Signs Date Temp Pulse Resp B/P (MAP) Pulse Ox O2 O2 Flow FiO2 Time Delivery Rate 11/06/18 97.0 80 19 140/67 99 20:54 (91) Physical Exam Const: No acute distress Head: Atraumatic Eyes: Normal Conjunctiva ENT: Normal External Ears, Nose and Mouth. Neck: Full range of motion. No meningismus. Resp: Clear to auscultation bilaterally Cardio: Regular rate and rhythm, no murmurs Abd: Soft, + mild suprapubic and left lower quadrant tenderness to palpation. Non distended. No rebound, no guarding. Normal bowel sounds Skin: No petechiae or rashes Back: No midline or flank tenderness Ext: No cyanosis, or edema Neur: Awake and alert Psych: Normal Mood and Affect Result Diagram: 11/06/182205 Results 24 hrs Laboratory Tests Test 11/06/18 22:06 11/06/18 22:08 White Blood Count 6.8 10^3/ul Red Blood Count 4.78 10^6/ul Hemoglobin 12.6 g/dl Hematocrit 39.1 % Mean Corpuscular Volume 81.8 fl Mean Corpuscular Hemoglobin 26.4 pg Mean Corpuscular Hemoglobin Concent 32.2 g/dl Red Cell Distribution Width 12.9 % Platelet Count 355 10^3/UL Mean Platelet Volume 9.2 fl Immature Granulocytes % 0.400 % Neutrophils % 49.8 % Lymphocytes % 36.6 % Monocytes % 8.2 % Eosinophils % 4.3 % Basophils % 0.7 % Nucleated Red Blood Cells % 0.0 /100WBC Immature Granulocytes # 0.030 10^3/ul Neutrophils # 3.4 10^3/ul Lymphocytes # 2.5 10^3/ul Monocytes # 0.6 10^3/ul Eosinophils # 0.3 10^3/ul Basophils # 0.1 10^3/ul Nucleated Red Blood Cells # 0.0 10^3/ul Urine Color YELLOW Urine Clarity CLEAR Urine pH 6.0 Urine Specific Addy 1.021 Urine Ketones NEGATIVE mg/dL Urine Nitrite NEGATIVE mg/dL Urine Bilirubin NEGATIVE mg/dL Urine Urobilinogen NEGATIVE mg/dL Urine Leukocyte Esterase NEGATIVE Greg/ul Urine Microscopic RBC 30 /HPF Urine Microscopic WBC 0 /HPF Urine Hemoglobin 2+ mg/dL Urine Glucose NEGATIVE mg/dL Urine Total Protein NEGATIVE mg/dl POC Beta HCG, Qualitative NEGATIVE Current Medications Medications Dose Sig/Beth Start Time Status Last (Trade) Ordered Route PRN Stop Time Admin Dose Reason Admin Sodium 1,000 ml @ Q1H STAT 11/06/18 DC 11/06/18 Chloride 1,000 mls/hr IV 21:50 11/06/18 22:08 22:49 650 mg ONCE STAT 11/06/18 DC 11/06/18 Acetaminophen PO 21:50 11/06/18 21:58 (Tylenol 21:52 Tab) Procedures/MDM LABS & DIAGNOSTIC IMAGING: CBC: no e/o of systemic infection or severe anemia Urine: + hematuria without e/o acute infection Beta hcg: negative ED COURSE: The patient was given IV fluids, Tylenol The medication was well tolerated and the patient had market improvement in symptoms. The patient remained stable throughout ED course. MEDICAL DECISION MAKING: This is a 38-year-old female presents to the ED for the second time in 2 months for same complaints of vaginal bleeding. Records reviewed from October 06, 2018 show patient with evidence of a left ovarian cyst. She presented again today complaining of dizziness and left lower quadrant pain. She is afebrile here, vital signs are stable. She is nontoxic appearing and well-hydrated. Abdominal exam without evidence of peritonitis. Workup was normal, without any evidence of significant dehydration or anemia. She was treated with IV fluids, and Tylenol significant improvement of her pain. Patient is stable for outpatient follow-up and management. She has an appointment with a lens examiner on Wednesday. She was told to return here for any new or worsening symptoms. PRESCRIPTIONS: Ibuprofen SPECIALIST FOLLOW UP RECOMMENDED: Ur Coordinator Patient has been advised to follow up with primary care in 1-2 days. Blood Pressure Assessment: Patient's blood pressure was elevated (>120/80) but appears stable without evidence of hypertension emergency or urgency. The patient was counseled about the risks of hypertension and urged to pursue outpatient monitoring and therapy within a week with their primary care physician. Departure Diagnosis: Primary Impression: Dysfunctional uterine bleeding Additional Impression: Left ovarian cyst Condition: Stable Patient Instructions: Dysfunctional Uterine Bleeding, Ovarian Cyst Referrals: [employer] [place] [id number] [id number] OFFICE FAX KATYA DOS [place] [address] [place] [place] [id number] [facility] [address] [place], [place] [phone] KUSHAL ZULUAGATERA [address] [facility] [address] [id number] MARY CROFT [address] [place], [place] [id number] [facility] [address] [place], [place] [id number] [address] [facility] [id number] - KIRILL ARMAS [address], [facility] [id number] ABBOTT, [place] [address] [facility]. [address], [place] [phone] [address] LAN, DAVIS [address] [place] [address] Additional Instructions: Please follow-up with your lens examiner as he may need treatment for your dysfunctional uterine bleeding. Take copies of your reports. You can take ibuprofen for pain. Return here for any new or worsening symptoms. OG GARCIA PA-C Nov 06, 2018 23:22
== END 2018-11-06 23:22 | disposition home or self-care (01) ==
LOC: FTE 20:52
DX: N93.8 Other specified abnormal uterine and vaginal bleeding (principal); N83.202 Unspecified ovarian cyst, left side; R10.2 Pelvic and perineal pain
CPT/HCPCS: 36415; 81001; 81025; 85025; 96360; J7030; Z7502; Z7610

== ENCOUNTER 2018-11-24 07:59 | Emergency (ER) | payer OTHER ==
[~2018-11-24] VITALS: Ht 157.5 cm; Wt 78.2 kg
[2018-11-24 08:13] VITALS: BP 123/76; Ht 157.5 cm; Wt 78.2 kg
[2018-11-24] MEDS ORDERED: ALBUTEROL 0.083% (NEB) 2.5 MG/3 ML AMP NEB STA (09:04)
[2018-11-24] MEDS ORDERED: IPRATROPIUM (NEB) 0.5 MG/2.5 ML AMP NEB STA (09:04)
[2018-11-24] MEDS ORDERED: predniSONE 20 MG TAB PO STA (09:04)
[2018-11-24] MEDS ORDERED: ALBU18HF INHALATION (12:06)
[2018-11-24] MEDS ORDERED: PRED20TA PO (12:06)
--- NOTE | 2018-11-24 12:09 | ERD ---
ER Documentation Chief Complaint Chief Complaint cold symptoms x 3 days HPI 38-year-old female with history of asthma presents for cold symptoms x3 days. She has sore throat, cough, sinus pain, ear pain. She has been taking ibuprofen at home without relief. There is also some of the right nose and nasal congestion. Denies fevers or chills. Denies chest pain or shortness of breath. She does complain of wheezing however. No treatments at home. No modifying factors noted. ROS All systems reviewed and are negative except as per history of present illness. Medications Home Meds Active Scripts Albuterol Sulfate* (Ventolin HFA*) 18 Gm Hfa.aer.ad, 2 PUFF INHALATION Q4H PRN for SHORTNESS OF BREATH, #1 INHALER Prov:YURY MCNEIL DO 11/24/18 Prednisone* (Prednisone*) 20 Mg Tab, 40 MG PO DAILY for asthma for 3 Days, #6 TAB Prov:YURY MCNEIL DO 11/24/18 Ibuprofen* (Motrin*) 600 Mg Tab, 600 MG PO Q6H PRN for PAIN AND OR ELEVATED TEMP, #30 TAB Prov:OG GARCIAC 11/06/18 Ibuprofen* (Motrin*) 600 Mg Tab, 600 MG PO Q6, #30 TAB Prov:DOMINGO PRIDE PA-C 10/15/18 Nitrofurantoin Monohyd Macrocr* (Macrobid*) 100 Mg Capsr, 100 MG PO BID for 5 Days, CAP Prov:DOMINGO PRIDE PA-C 10/15/18 Dextromethorphan Hb-Promethazine Hcl* (Promethazine DM* Syrup) 473 Ml Syrup, 5 ML PO Q6 PRN for COUGH for 5 Days, ML Prov:ERIC FRANCISCO MD 09/18/18 Fluticasone Propionate (Flonase Allergy Relief) 9.9 Ml [place].susp, 1 SPRAY NASAL BID for 10 Days, #1 BOTTLE TO EACH NOSTRIL Prov:ERIC FRANCISCO MD 09/18/18 Azithromycin* (Zithromax*) 500 Mg Tablet, 500 MG PO DAILY for 3 Days, TAB Prov:ERIC FRANCISCO MD 09/18/18 Amoxicillin Trihydrate (Amoxicillin) 500 Mg Tablet, 500 MG PO BID for sinusitis for 5 Days, #10 TAB Prov:YURY MCNEIL DO 08/06/18 Ibuprofen* (Motrin*) 600 Mg Tab, 600 MG PO Q6H PRN for PAIN AND OR ELEVATED TEMP, #30 TAB Prov:YURY MCNEIL DO 08/06/18 Albuterol Sulfate* (Ventolin HFA*) 18 Gm Hfa.aer.ad, 2 PUFF INHALATION Q4H, #1 INHALER Prov:YURY MCNEIL DO 08/06/18 D-Methorphan Hb/P-Epd HCl/Bpm (Gwoeqouypi-Uazihwndsff-Um Syr) 118 Ml Syrup, 5 ML PO Q4 PRN for COUGH, #1 BOTTLE Prov:YURY MCNEIL DO 08/06/18 Docusate Sodium* (Colace*) 100 Mg Capsule, 100 MG PO BID, #60 CAP Prov:OAKLEY,SHAINA V. GAUGER DELIVERY 07/27/17 Oxycodone HCl/Acetaminophen (Percocet 5-325 mg Tablet) 1 Each Tablet, 1 EACH PO Q6 for PAIN, #30 TAB Prov:OAKLEYAURA ANNEDYA V. GAUGER DELIVERY 07/27/17 Allergies Allergies: Coded Allergies: No Known Allergies (Unverified Allergy, Unknown, 11/06/18) PMhx/Soc History of Surgery: Yes (Rina) Anesthesia Reaction: No Hx Neurological Disorder: No Hx Respiratory Disorders: Yes (Asthma) Hx Cardiac Disorders: No Hx Psychiatric Problems: No Hx Miscellaneous Medical Probl: No Hx Alcohol Use: No Hx Substance Use: No Hx Tobacco Use: No Smoking Status: Never smoker Physical Exam Vitals Vital Signs Date Temp Pulse Resp B/P (MAP) Pulse Ox O2 O2 Flow FiO2 Time Delivery Rate 11/24/18 78 20 98 Room Air 12:15 11/24/18 78 18 96 21 09:33 11/24/18 98.4 93 20 123/76 96 08:13 (92) Physical Exam Const: No acute distress Head: Atraumatic Eyes: Normal Conjunctiva ENT: Normal External Ears, bilateral tympanic membrane intact without erythema or bulging noted, nose and Mouth examination normal, no tonsillar swelling or exudate noted Neck: Full range of motion. No meningismus. Resp: Diffuse expiratory wheezing noted on examination Cardio: Regular rate and rhythm, no murmurs Skin: No petechiae or rashes Ext: No cyanosis, or edema Neur: Awake and alert Psych: Normal Mood and Affect Results 24 hrs Current Medications Medications Dose Sig/Beth Start Time Status Last (Trade) Ordered Route PRN Stop Time Admin Dose Reason Admin Albuterol 5 mg ONCE STAT 11/24/18 DC 11/24/18 (Proventil NEB 09:04 09:32 0.083% (Neb)) 11/24/18 09:09 Ipratropium 0.5 mg ONCE STAT 11/24/18 DC 11/24/18 Carrier NEB 09:04 09:32 (Atrovent 11/24/18 09:09 0.02% (Neb)) Prednisone 40 mg ONCE STAT 11/24/18 DC 11/24/18 (Prednisone) PO 09:04 09:13 11/24/18 09:09 Procedures/MDM Medical Decision Making: Differential diagnosis includes but not limited to upper respiratory infection, pneumonia, sepsis, meningitis, influenza, asthma exacerbation. Patient appeared well on physical examination, nontoxic appearing. Lungs were clear to auscultation bilaterally. There is low suspicion for pneumonia, sepsis, meningitis. Patient likely has an upper respiratory infection, likely viral. Therefore antibiotics not indicated. Viral URI likely the cause of patient's asthma exacerbation Patient given breathing treatment and steroid with improvement in symptoms. Patient given prescription for supportive medication(s) including steroids. Patient advised to follow up with PCP in 1-2 days. Patient advised to return to ED for new or worsening symptoms. Patient stable on discharge from the ED. Disclaimer: Inadvertent spelling and grammatical errors are likely due to EHR/dictation software use and do not reflect on the overall quality of patient care. Also, please note that the electronic time recorded on this note does not necessarily reflect the actual time of the patient encounter. Departure Diagnosis: Primary Impression: Asthma exacerbation Asthma severity: mild Asthma persistence: unspecified Qualified Codes: J45.901 - Unspecified asthma with (acute) exacerbation Condition: Fair Patient Instructions: Asthma Medications Referrals: COMMUNITY CLINICS YOU HAVE RECEIVED A MEDICAL SCREENING EXAM AND THE RESULTS INDICATE THAT YOU DO NOT HAVE A CONDITION THAT REQUIRES URGENT TREATMENT IN THE EMERGENCY DEPARTMENT. FURTHER EVALUATION AND TREATMENT OF YOUR CONDITION CAN WAIT UNTIL YOU ARE SEEN IN YOUR DOCTORS OFFICE WITHIN THE NEXT 1-2 DAYS. IT IS YOUR RESPONSIBILITY TO MAKE AN APPOINTMENT FOR FOLOW-UP CARE. IF YOU HAVE A PRIMARY DOCTOR --you should call your primary doctor and schedule an appointment IF YOU DO NOT HAVE A PRIMARY DOCTOR YOU CAN CALL OUR PHYSICIAN REFERRAL HOTLINE AT IF YOU CAN NOT AFFORD TO SEE A PHYSICIAN YOU CAN CHOSE FROM THE FOLLOWING [facility] [address] [facility] [address] [facility] [address] [facility] [address] [facility] [address] [facility] [facility] [address] Additional Instructions: Llame al doctor MAANA y julieta rj NINI PARA DENTRO DE 1-2 SIMEON.Dgale a la secretaria que nosotros le instruimos hacer esta nini.Avise o llame si ontiveros condicin se empeora antes de la nini. Regresa aqui si peor o no mejor. YURY MCNEIL DO Nov 24, 2018 12:09
[2018-11-24 12:15] VITALS: PULSE 78; RESP 20
== END 2018-11-24 12:16 | disposition home or self-care (01) ==
LOC: FTE 07:59
DX: J45.901 Unspecified asthma with (acute) exacerbation (principal)
CPT/HCPCS: 94664; J7512; Z7502; Z7610